=== PATIENT | male | born 1950 | race Caucasian/White ===

== ENCOUNTER 2016-09-19 23:23 | Emergency (ER) | payer MEDICARE, MEDICAID ==
[~2016-09-19] VITALS: Ht 193 cm; Wt 114.0 kg
[~2016-09-19 23:23] MED LIST: CITA20TA11 PO; DEPER5 PO; LACT10SO6 MT; LAMO25TA4 PO; METO25TA6 PO; OLAN10TA19 PO; OLAN5TAB26 PO; TRAZ-129 PO
[2016-09-19 23:45] VITALS: BP 123/68
[2016-09-20 00:31] LABS: HEMOGLOBIN. 11.7 g/dL (14.0-18.0); MEAN CORPUSCULAR HEMOGLOBIN 31.9 pg (28.0-32.0); MEAN CORPUSCULAR HGB CONC 33.4 g/dL (31.0-37.0); MEAN CORPUSCULAR VOLUME 95.8 fL (80.0-94.0); MEAN PLATELET VOLUME 7.8 fl (7.4-10.4); PLATELET 218 x1000/uL (130-400); RED BLOOD CELL COUNT 3.66 mill/uL (4.7-6.1); WHITE BLOOD COUNT 7.8 x1000/uL (4.5-11.0)
[2016-09-20 00:33] LABS: DIFFERENTIAL COMMENT 1
[2016-09-20 00:34] LABS: CHLORIDE 106 mEq/L (98-107); INDEX HEMOLYSI 3 (1-3); INDEX ICTERIC 1 (1-4); INDEX LIPEMIC 1 (1-3)
[2016-09-20 00:46] LABS: ALANINE AMINOTRANSFERASE 25 IU/L (13-61); ALBUMIN 3.1 g/dL (3.4-5.0); ANION GAP 15; CALCIUM 8.8 mg/dL (8.5-10.1); CARBON DIOXIDE 22 mEq/L (21-32); UREA NITROGEN BLOOD 13 mg/dL (7-21); VALPROIC ACID 39.9 ug/mL (50-100); eGFR > 60 mL/min (>60)
[2016-09-20 01:00] LABS: ATYPICAL LYMPHOCYTES 1; PLATELET ESTIMATE NORMAL
[2016-09-20] MEDS ORDERED: VALPROIC ACID 250MG CAPSULE PO ONE (02:30)
== END 2016-09-20 06:26 | disposition home or self-care (01) ==
LOC: ER 23:24
DX: R56.9 Unspecified convulsions (principal); R53.1 Weakness; F20.9 Schizophrenia, unspecified; Z91.011 Allergy to milk products; Z79.899 Other long term (current) drug therapy
CPT/HCPCS: 36415; 80053; 80165; 85025; 93005; 99285

== ENCOUNTER 2017-03-19 15:55 | Observation (INO) | payer MEDICARE, MEDICAID ==
[~2017-03-19] VITALS: Ht 193 cm; Wt 86.6 kg
[2017-03-19] MEDS ORDERED: CLONIDINE 0.2MG TABLET PO ONE (18:15)
[2017-03-19 18:45] LABS: CLARITY URINE CLEAR (CLEAR); COLOR URINE YELLOW (YELLOW); GLUCOSE URINE NEGATIVE (NEGATIVE); KETONES URINE 1+ (NEGATIVE); LEUKOCYTE ESTERASE URINE NEGATIVE (NEGATIVE); NITRITE URINE NEGATIVE (NEGATIVE); OCCULT BLOOD URINE 3+ (NEGATIVE); PH URINE 6.5 (4.5-8.0); PROTEIN URINE TRACE (NEGATIVE); SPECIFIC GRAVITY URINE 1.025 (1.005-1.030)
[2017-03-19 19:08] LABS: *AMPHETAMINES SCREEN URINE NEGATIVE (NEGATIVE); *BARBITURATES SCREEN URINE NEGATIVE (NEGATIVE); *BENZODIAZEPINES SCREEN URINE NEGATIVE (NEGATIVE); *COCAINE SCREEN URINE NEGATIVE (NEGATIVE); CANNABINOID URINE SCREEN NEGATIVE (NEGATIVE); METHADONE URINE SCREEN NEGATIVE (NEGATIVE); OPIATES URINE SCREEN NEGATIVE (NEGATIVE); PHENCYCLIDINE URINE SCREEN NEGATIVE (NEGATIVE)
[2017-03-19 19:32] LABS: PROTHROMBIN TIME 10.7 sec (9.4-11.6)
[2017-03-19 19:34] LABS: EOSINOPHILS % 0.9 % (0.0-5.0); HEMATOCRIT. 37.3 % (42.0-52.0); HEMOGLOBIN. 12.8 g/dL (14.0-18.0); LYMPHOCYTES % 17.4 % (20.0-50.0); MEAN CORPUSCULAR HEMOGLOBIN 31.9 pg (28.0-32.0); MEAN CORPUSCULAR VOLUME 92.7 fL (80.0-94.0); MEAN PLATELET VOLUME 9.4 fl (7.4-10.4); MONOCYTES % 9.7 % (2.0-8.0); PLATELET 131 x1000/uL (130-400); RED BLOOD CELL COUNT 4.03 mill/uL (4.7-6.1); RED CELL DISTRIBUTION WIDTH 13.3 % (11.6-14.6)
[2017-03-19 19:35] LABS: CARBON DIOXIDE 25 mEq/L (21-32); CHLORIDE 105 mEq/L (98-107)
[2017-03-19 19:42] LABS: ETHANOL BLOOD < 10 mg/dL
[2017-03-19 19:43] LABS: TROPONIN I 0.03 ng/mL (0.00-0.04)
[2017-03-19] MEDS ORDERED: LORAZEPAM 2MG/ML CPJ IV ONE (20:15)
[2017-03-19] MEDS ORDERED: LEVETIRACETAM 1,000 MG in SODIUM CHLORIDE 0.9% 100 ML IV ONE (20:45)
[2017-03-19 22:40] VITALS: BP 131/82
[2017-03-20 04:00] VITALS: BP 99/58
[2017-03-20] MEDS: DEXT 5%/0.45% NACL 1000ML 1,000 ML IV SCH ×2 (04:00→16:35)
[2017-03-20 06:39] LABS: EOSINOPHILS % 2.3 % (0.0-5.0); HEMATOCRIT. 32.8 % (42.0-52.0); HEMOGLOBIN. 11.3 g/dL (14.0-18.0); LYMPHOCYTES % 24.1 % (20.0-50.0); MEAN CORPUSCULAR HEMOGLOBIN 32.1 pg (28.0-32.0); MEAN CORPUSCULAR VOLUME 93.2 fL (80.0-94.0); MEAN PLATELET VOLUME 9.2 fl (7.4-10.4); MONOCYTES % 10.1 % (2.0-8.0); NEUTROPHILS % 62.5 % (40.0-76.0); PLATELET 130 x1000/uL (130-400); RED BLOOD CELL COUNT 3.52 mill/uL (4.7-6.1); RED CELL DISTRIBUTION WIDTH 13.5 % (11.6-14.6)
[2017-03-20 07:22] LABS: CARBON DIOXIDE 26 mEq/L (21-32); CHLORIDE 109 mEq/L (98-107)
[2017-03-20 07:39] VITALS: BP 160/73
[2017-03-20] MEDS ORDERED: LAMOTRIGINE 25MG TABLET PO SCH (09:00)
[2017-03-20] MEDS: LEVETIRACETAM 500MG TABLET PO SCH ×2 (09:07→21:37)
[2017-03-20] MEDS: DIVALPROEX SODIUM 500MG DR TABLET PO SCH ×2 (09:07→16:35)
[2017-03-20] MEDS: OLANZAPINE 5MG TABLET PO SCH (09:07)
[2017-03-20] MEDS: METOPROLOL TARTRATE 25MG TABLET PO SCH (09:07)
[2017-03-20 12:12] VITALS: BP 95/54
[2017-03-20 12:13] VITALS: BP_SYST 88; BP_SYST 97; BP_DIAS 62; BP_DIAS 65
[2017-03-20] MEDS: TRAZODONE HCL 50MG TABLET PO SCH (16:35)
[2017-03-20] MEDS: OLANZAPINE 10MG TABLET PO SCH (16:35)
[2017-03-20 20:00] VITALS: BP_SYST 104; BP_SYST 91; BP_DIAS 66; BP_DIAS 67
[2017-03-20] MEDS ORDERED: CITALOPRAM HYDROBROMIDE 20MG TABLET PO SCH (21:00)
[2017-03-21 00:05] VITALS: BP 107/56
[2017-03-21 04:00] VITALS: BP 108/64
[2017-03-21] MEDS: DEXT 5%/0.45% NACL 1000ML 1,000 ML IV SCH (05:06)
[2017-03-21 08:00] VITALS: BP_SYST 128; BP_SYST 139; BP_SYST 142; BP_DIAS 61; BP_DIAS 81; BP_DIAS 85
[2017-03-21] MEDS: LAMOTRIGINE 25MG TABLET PO SCH ×2 (09:08→16:20)
[2017-03-21] MEDS: LEVETIRACETAM 500MG TABLET PO SCH (09:08)
[2017-03-21] MEDS: OLANZAPINE 5MG TABLET PO SCH (09:08)
[2017-03-21] MEDS: DIVALPROEX SODIUM 500MG DR TABLET PO SCH ×2 (09:08→16:20)
[2017-03-21] MEDS: METOPROLOL TARTRATE 25MG TABLET PO SCH (09:09)
[2017-03-21 12:00] VITALS: BP 111/79
[2017-03-21 13:27] VITALS: BP 111/99
[2017-03-21 16:00] VITALS: BP 140/82
[2017-03-21] MEDS: OLANZAPINE 10MG TABLET PO SCH (16:20)
[2017-03-21] MEDS: TRAZODONE HCL 50MG TABLET PO SCH (16:21)
== END 2017-03-21 16:40 | disposition home or self-care (01) ==
LOC: ER 17:52 → 7WST 20:53 → INTOOBSV 20:53 → EDBEDREQTM 20:56 → EDBEDREQ 20:56 → ENRESERV 21:40
PROVIDERS: ADMIT Internal Medicine; ATTEND Internal Medicine
DX: G40.909 Epilepsy, unspecified, not intractable, without status epilepticus (principal); F31.9 Bipolar disorder, unspecified; F25.9 Schizoaffective disorder, unspecified; I11.0 Hypertensive heart disease with heart failure; I50.9 Heart failure, unspecified; J32.0 Chronic maxillary sinusitis; N40.0 Benign prostatic hyperplasia without lower urinary tract symptoms; Z79.899 Other long term (current) drug therapy; Z87.820 Personal history of traumatic brain injury; Z98.2 Presence of cerebrospinal fluid drainage device
CPT/HCPCS: 36415; 70450; 71010; 80048; 80053; 80165; 80305; 81001; 82962; 83880; 84484; 85025; 85610; 88302; 93005; 95819; 96361; 96365; 96375; 99285; A6261; G0378; G0482; J1953; J2060; J3490; 96374; J7050

== ENCOUNTER 2017-08-03 11:09 | Emergency (ER) | payer MEDICAID, MEDICARE ==
[~2017-08-03] VITALS: Ht 172.7 cm; Wt 80.0 kg
[2017-08-03 13:26] LABS: BASOPHILS % 0.7 % (0.0-2.0); EOSINOPHILS % 0.7 % (0.0-5.0); HEMATOCRIT. 37.6 % (42.0-52.0); HEMOGLOBIN. 12.6 g/dL (14.0-18.0); LYMPHOCYTES % 12.1 % (20.0-50.0); MEAN CORPUSCULAR HEMOGLOBIN 31.7 pg (28.0-32.0); MEAN CORPUSCULAR VOLUME 94.5 fL (80.0-94.0); MEAN PLATELET VOLUME 10.1 fl (7.4-10.4); MONOCYTES % 9.7 % (2.0-8.0); NEUTROPHILS % 76.8 % (40.0-76.0); PLATELET 123 x1000/uL (130-400); RED BLOOD CELL COUNT 3.98 mill/uL (4.7-6.1); RED CELL DISTRIBUTION WIDTH 13.8 % (11.6-14.6)
[2017-08-03 13:41] LABS: CARBAMAZEPINE 3.4 ug/mL (4-12); CHLORIDE 108 mEq/L (98-107)
[2017-08-03 13:48] LABS: PHENOBARBITAL < 2.1 ug/mL (15.0-40.0)
[2017-08-03 15:12] VITALS: BP 139/79
== END 2017-08-03 17:52 ==
LOC: ER 12:45
DX: G40.409 Other generalized epilepsy and epileptic syndromes, not intractable, without status epilepticus (principal); I10 Essential (primary) hypertension; E11.9 Type 2 diabetes mellitus without complications; E78.5 Hyperlipidemia, unspecified; E05.90 Thyrotoxicosis, unspecified without thyrotoxic crisis or storm; Z88.8 Allergy status to other drugs, medicaments and biological substances; Z91.011 Allergy to milk products
CPT/HCPCS: 36415; 80053; 80156; 80165; 80184; 80185; 82962; 85025; 99285

== ENCOUNTER 2017-08-13 05:05 | Emergency (ER) | payer MEDICARE ==
[~2017-08-13] VITALS: Ht 193 cm; Wt 98.0 kg
[2017-08-13 07:12] LABS: BASOPHILS % 0.6 % (0.0-2.0); EOSINOPHILS % 0.3 % (0.0-5.0); HEMATOCRIT. 37.3 % (42.0-52.0); HEMOGLOBIN. 12.7 g/dL (14.0-18.0); LYMPHOCYTES % 12.5 % (20.0-50.0); MEAN CORPUSCULAR HEMOGLOBIN 31.8 pg (28.0-32.0); MEAN CORPUSCULAR VOLUME 93.7 fL (80.0-94.0); MEAN PLATELET VOLUME 9.6 fl (7.4-10.4); MONOCYTES % 9.6 % (2.0-8.0); PLATELET 120 x1000/uL (130-400); RED BLOOD CELL COUNT 3.98 mill/uL (4.7-6.1); RED CELL DISTRIBUTION WIDTH 13.3 % (11.6-14.6)
[2017-08-13 07:22] LABS: CHLORIDE 108 mEq/L (98-107)
[2017-08-13 07:23] LABS: TROPONIN I < 0.02 ng/mL (0.00-0.04)
[2017-08-13] MEDS ORDERED: LIDOCAINE HCL 1% 20ML VIAL (Pyxis) INJ INFIL ONE (08:45)
[2017-08-13] MEDS ORDERED: BACITRACIN ZINC OINT UDPKT TOP ONE (11:59)
[2017-08-13] MEDS ORDERED: TETANUS AND DIPHTHERIA TOX/PF 0.5ML SYR (ADULT) IM ONE (12:30)
[2017-08-13] MEDS ORDERED: OXYMETAZOLINE HCL NASAL SPRAY 15ML BOTHNSTRLS STA (12:58)
[2017-08-13] MEDS ORDERED: VISCOUS LIDOCAINE 2% 15 ML UDC MM STA (12:58)
[2017-08-13 14:15] VITALS: BP 139/68
[2017-08-15] MEDS ORDERED: ATOR10TA69 PO (02:47)
[2017-08-15] MEDS ORDERED: CARB200T PO (02:47)
[2017-08-15] MEDS ORDERED: ASPI-1159 PO (02:47)
[2017-08-15] MEDS ORDERED: LISI-604 PO (02:47)
[2017-08-15] MEDS ORDERED: THIO300C PO (02:48)
== END 2017-08-13 14:37 | disposition home or self-care (01) ==
LOC: ER 05:39
DX: S01.81XA Laceration without foreign body of other part of head, initial encounter (principal); S05.92XA Unspecified injury of left eye and orbit, initial encounter; S05.12XA Contusion of eyeball and orbital tissues, left eye, initial encounter; W19.XXXA Unspecified fall, initial encounter; R56.9 Unspecified convulsions; R04.0 Epistaxis; E11.9 Type 2 diabetes mellitus without complications; E05.90 Thyrotoxicosis, unspecified without thyrotoxic crisis or storm; Z23 Encounter for immunization; Z88.8 Allergy status to other drugs, medicaments and biological substances; Z98.2 Presence of cerebrospinal fluid drainage device; Z91.011 Allergy to milk products
CPT/HCPCS: 12011; 36415; 70450; 71045; 80053; 83735; 83880; 84484; 85025; 93005; 99285; J3490; 90714

== ENCOUNTER 2017-08-28 10:48 | Emergency (ER) | payer MEDICARE ==
[~2017-08-28] VITALS: Ht 182.9 cm; Wt 93.2 kg
[~2017-08-28 10:48] MED LIST changes: +ASPI-1159 PO; +ATOR10TA69 PO; +CARB200T PO; +LISI-604 PO; +THIO300C PO
[2017-08-28 18:58] LABS: CHLORIDE 108 mEq/L (98-107)
[2017-08-28 19:04] LABS: HEMATOCRIT. 39.4 % (42.0-52.0); MEAN CORPUSCULAR HEMOGLOBIN 31.5 pg (28.0-32.0); MEAN CORPUSCULAR VOLUME 95.2 fL (80.0-94.0); PLATELET 127 x1000/uL (130-400); RED BLOOD CELL COUNT 4.14 mill/uL (4.7-6.1); RED CELL DISTRIBUTION WIDTH 13.4 % (11.6-14.6)
[2017-08-28 19:06] LABS: CREATINE KINASE 66 IU/L (39-308)
[2017-08-28 19:44] VITALS: BP 157/82
[2017-08-28 19:50] LABS: CLARITY URINE CLEAR (CLEAR); COLOR URINE YELLOW (YELLOW); KETONES URINE 2+ (NEGATIVE); LEUKOCYTE ESTERASE URINE NEGATIVE (NEGATIVE); NITRITE URINE NEGATIVE (NEGATIVE); OCCULT BLOOD URINE NEGATIVE (NEGATIVE); PROTEIN URINE NEGATIVE (NEGATIVE); SPECIFIC GRAVITY URINE 1.027 (1.005-1.030)
[2017-08-28 20:01] LABS: ATYPICAL LYMPHOCYTES 1; PLATELET ESTIMATE SLIGHTLY DECREASED
== END 2017-08-28 20:35 | disposition home or self-care (01) ==
LOC: ER 13:44
DX: S09.8XXD Other specified injuries of head, subsequent encounter (principal); I10 Essential (primary) hypertension; X58.XXXD Exposure to other specified factors, subsequent encounter; Y93.89 Activity, other specified; Y99.8 Other external cause status; Y92.89 Other specified places as the place of occurrence of the external cause; Z79.82 Long term (current) use of aspirin
CPT/HCPCS: 36415; 80053; 81003; 82550; 85025; 99284

== ENCOUNTER 2017-10-20 19:49 | Emergency (ER) | payer MEDICARE ==
[~2017-10-20] VITALS: Ht 188 cm; Wt 100.0 kg
[~2017-10-20 19:49] MED LIST changes: +CARB200T6 PO; +Divalproex Sodium PO; -LACT10SO6 MT; +LACT10SO6 PO; +LAM25 PO; +LORA10TA7 PO; -OLAN5TAB26 PO
[2017-10-20] MEDS ORDERED: SODIUM CHLORIDE 0.9% 1,000 ML IV ONE (20:30)
[2017-10-20] MEDS ORDERED: ACETAMINOPHEN 325MG TABLET PO ONE (20:30)
[2017-10-20 20:56] LABS: HEMATOCRIT. 33.9 % (42.0-52.0); HEMOGLOBIN. 11.5 g/dL (14.0-18.0); MEAN CORPUSCULAR HEMOGLOBIN 32.3 pg (28.0-32.0); MEAN CORPUSCULAR VOLUME 95.1 fL (80.0-94.0); MEAN PLATELET VOLUME 9.2 fl (7.4-10.4); PLATELET 131 x1000/uL (130-400); RED BLOOD CELL COUNT 3.56 mill/uL (4.7-6.1); RED CELL DISTRIBUTION WIDTH 13.3 % (11.6-14.6)
[2017-10-20 21:01] LABS: CHLORIDE 103 mEq/L (98-107)
[2017-10-20 21:10] LABS: CARBAMAZEPINE 4.3 ug/mL (4-12)
[2017-10-20 21:14] LABS: PHENOBARBITAL < 2.1 ug/mL (15.0-40.0)
[2017-10-20 21:41] LABS: PLATELET ESTIMATE SLIGHTLY DECREASED
[2017-10-20] MEDS ORDERED: VALPROATE SODIUM 500 MG in SODIUM CHLORIDE 0.9% 100 ML IV STA (23:12)
[2017-10-20] MEDS ORDERED: CARBAMAZEPINE 100MG TABLET CHEW PO ONE (23:15)
[2017-10-21 03:35] VITALS: BP 138/87
== END 2017-10-21 04:00 ==
LOC: ER 19:49
DX: G40.409 Other generalized epilepsy and epileptic syndromes, not intractable, without status epilepticus (principal); I10 Essential (primary) hypertension; E78.00 Pure hypercholesterolemia, unspecified; H61.21 Impacted cerumen, right ear; D72.819 Decreased white blood cell count, unspecified; D64.9 Anemia, unspecified; Z91.011 Allergy to milk products; Z88.8 Allergy status to other drugs, medicaments and biological substances
CPT/HCPCS: 36415; 70450; 80053; 80156; 80165; 80184; 80185; 85025; 96361; 96365; 99285; J3490; J7030; J7050

== ENCOUNTER 2017-10-22 10:53 | Emergency (ER) | payer MEDICARE ==
[~2017-10-22] VITALS: Ht 193 cm; Wt 98.0 kg
[2017-10-22 13:47] VITALS: BP 130/68
== END 2017-10-22 14:15 | disposition home or self-care (01) ==
LOC: ER 10:53
DX: Z09 Encounter for follow-up examination after completed treatment for conditions other than malignant neoplasm (principal); H61.21 Impacted cerumen, right ear; G40.909 Epilepsy, unspecified, not intractable, without status epilepticus
CPT/HCPCS: 99282

== ENCOUNTER 2017-10-25 13:24 | Emergency (ER) | payer MEDICARE ==
[~2017-10-25] VITALS: Ht 182.9 cm; Wt 100.0 kg
[2017-10-25 15:17] LABS: CHLORIDE 108 mEq/L (98-107)
[2017-10-25 16:04] LABS: EOSINOPHILS % 3.6 % (0.0-5.0); HEMATOCRIT. 31.8 % (42.0-52.0); HEMOGLOBIN. 10.9 g/dL (14.0-18.0); LYMPHOCYTES % 21.9 % (20.0-50.0); MEAN CORPUSCULAR HEMOGLOBIN 32.5 pg (28.0-32.0); MEAN CORPUSCULAR VOLUME 94.7 fL (80.0-94.0); MONOCYTES % 9.8 % (2.0-8.0); NEUTROPHILS % 63.7 % (40.0-76.0); PLATELET 133 x1000/uL (130-400); RED BLOOD CELL COUNT 3.36 mill/uL (4.7-6.1); RED CELL DISTRIBUTION WIDTH 13.2 % (11.6-14.6)
[2017-10-25 17:50] LABS: CLARITY URINE CLEAR (CLEAR); COLOR URINE YELLOW (YELLOW); KETONES URINE NEGATIVE (NEGATIVE); LEUKOCYTE ESTERASE URINE NEGATIVE (NEGATIVE); NITRITE URINE NEGATIVE (NEGATIVE); OCCULT BLOOD URINE NEGATIVE (NEGATIVE); PROTEIN URINE NEGATIVE (NEGATIVE); SPECIFIC GRAVITY URINE 1.009 (1.005-1.030); UROBILINOGEN URINE 0.2 E.U./dL (0.2-1.0)
[2017-10-25 18:39] VITALS: BP 125/75
== END 2017-10-25 18:41 | disposition home or self-care (01) ==
LOC: ER 15:25
DX: R32 Unspecified urinary incontinence (principal); D64.9 Anemia, unspecified; M54.5 Low back pain; I10 Essential (primary) hypertension; F17.200 Nicotine dependence, unspecified, uncomplicated; Z79.82 Long term (current) use of aspirin; Z91.011 Allergy to milk products; Z88.8 Allergy status to other drugs, medicaments and biological substances
CPT/HCPCS: 36415; 74018; 80053; 81003; 85025; 99285

== ENCOUNTER 2017-11-12 08:41 | Emergency (ER) | payer MEDICARE ==
[~2017-11-12] VITALS: Ht 193 cm; Wt 105.0 kg
[2017-11-12] MEDS ORDERED: SODIUM CHLORIDE 0.9% 1,000 ML IV ONE (09:14)
[2017-11-12] MEDS ORDERED: LAMOTRIGINE 25MG TABLET PO STA (09:14)
[2017-11-12] MEDS ORDERED: ACETAMINOPHEN 325MG TABLET PO ONE (09:30)
[2017-11-12 09:39] LABS: BASOPHILS % 1.1 % (0.0-2.0); EOSINOPHILS % 1.5 % (0.0-5.0); HEMATOCRIT. 38.8 % (42.0-52.0); HEMOGLOBIN. 13.4 g/dL (14.0-18.0); LYMPHOCYTES % 16.6 % (20.0-50.0); MEAN CORPUSCULAR HEMOGLOBIN 32.4 pg (28.0-32.0); MEAN CORPUSCULAR VOLUME 94.1 fL (80.0-94.0); MEAN PLATELET VOLUME 9.4 fl (7.4-10.4); MONOCYTES % 6.5 % (2.0-8.0); NEUTROPHILS % 74.3 % (40.0-76.0); PLATELET 126 x1000/uL (130-400); RED BLOOD CELL COUNT 4.13 mill/uL (4.7-6.1); RED CELL DISTRIBUTION WIDTH 12.9 % (11.6-14.6)
[2017-11-12 09:40] LABS: CHLORIDE 107 mEq/L (98-107)
[2017-11-12 10:18] LABS: CARBAMAZEPINE < 0.5 ug/mL (4-12); PHENOBARBITAL < 2.1 ug/mL (15.0-40.0)
[2017-11-12] MEDS ORDERED: LORAZEPAM 2MG/ML CPJ IV ONE (11:15)
[2017-11-12] MEDS ORDERED: CARBAMAZEPINE 200MG TABLET PO ONE (11:15)
[2017-11-12 13:36] VITALS: BP 133/86
== END 2017-11-12 13:51 | disposition home or self-care (01) ==
LOC: ER 09:03
DX: R56.9 Unspecified convulsions (principal); E78.00 Pure hypercholesterolemia, unspecified; F20.9 Schizophrenia, unspecified; I67.82 Cerebral ischemia; Z88.8 Allergy status to other drugs, medicaments and biological substances; Z79.82 Long term (current) use of aspirin; Z91.011 Allergy to milk products
CPT/HCPCS: 36415; 70450; 71045; 80053; 80156; 80165; 80184; 80185; 85025; 93005; 96361; 96374; 99285; J2060; J7030

== ENCOUNTER 2018-04-06 20:22 | Emergency (ER) | payer MEDICARE, OTHER ==
[~2018-04-06] VITALS: Ht 193 cm; Wt 99.0 kg
[~2018-04-06 20:22] MED LIST changes: -CARB200T6 PO; -CITA20TA11 PO; +CITA20TA75 PO; +IBUP-2029 MT; -TRAZ-129 PO; +TRAZ-212 PO
[2018-04-06 20:26] VITALS: BP 90/56
== END 2018-04-06 23:17 | disposition left against medical advice (07) ==
LOC: ER 20:57
DX: R07.9 Chest pain, unspecified (principal); Z87.891 Personal history of nicotine dependence; Z53.21 Procedure and treatment not carried out due to patient leaving prior to being seen by health care provider

== ENCOUNTER 2018-04-07 11:32 | Emergency (ER) | payer MEDICARE, OTHER ==
[~2018-04-07] VITALS: Ht 177.8 cm; Wt 174.0 kg
[2018-04-07 11:48] VITALS: BP 114/63
== END 2018-04-07 17:46 | disposition left against medical advice (07) ==
LOC: ER 11:32
DX: Z53.21 Procedure and treatment not carried out due to patient leaving prior to being seen by health care provider (principal)

== ENCOUNTER 2018-07-01 16:12 | Inpatient (IN) | payer MEDICARE, MEDICAID ==
[~2018-07-01] VITALS: Ht 193 cm; Wt 80.7 kg
[2018-07-01] MEDS ORDERED: SODIUM CHLORIDE 0.9% 500 ML IV ONE (17:55)
[2018-07-01 18:41] LABS: BASOPHILS % 0.7 % (0.0-2.0); EOSINOPHILS % 0.7 % (0.0-5.0); HEMATOCRIT. 36.9 % (42.0-52.0); HEMOGLOBIN. 12.6 g/dL (14.0-18.0); LYMPHOCYTES % 11.5 % (20.0-50.0); MEAN CORPUSCULAR HEMOGLOBIN 31.8 pg (28.0-32.0); MEAN CORPUSCULAR VOLUME 93.3 fL (80.0-94.0); MEAN PLATELET VOLUME 8.9 fl (7.4-10.4); MONOCYTES % 8.4 % (2.0-8.0); NEUTROPHILS % 78.7 % (40.0-76.0); PLATELET 119 x1000/uL (130-400); RED BLOOD CELL COUNT 3.95 mill/uL (4.7-6.1)
[2018-07-01 18:47] LABS: CHLORIDE 102 mEq/L (98-107)
[2018-07-01 18:48] LABS: INR 1.1; PROTHROMBIN TIME 10.6 sec (9.1-11.1)
[2018-07-01 18:49] LABS: CLARITY URINE CLEAR (CLEAR); COLOR URINE YELLOW (YELLOW); KETONES URINE NEGATIVE (NEGATIVE); LEUKOCYTE ESTERASE URINE NEGATIVE (NEGATIVE); NITRITE URINE NEGATIVE (NEGATIVE); OCCULT BLOOD URINE NEGATIVE (NEGATIVE); PROTEIN URINE NEGATIVE (NEGATIVE); UROBILINOGEN URINE 0.2 E.U./dL (0.2-1.0)
[2018-07-01 18:52] LABS: ETHANOL BLOOD < 10 mg/dL
[2018-07-01 18:56] LABS: CARBAMAZEPINE 5.7 ug/mL (4-12); CREATINE KINASE 136 IU/L (39-308)
[2018-07-01 18:57] LABS: *AMPHETAMINES SCREEN URINE NEGATIVE (NEGATIVE); *BARBITURATES SCREEN URINE NEGATIVE (NEGATIVE); *BENZODIAZEPINES SCREEN URINE NEGATIVE (NEGATIVE); *COCAINE SCREEN URINE NEGATIVE (NEGATIVE); CANNABINOID URINE SCREEN NEGATIVE (NEGATIVE)
[2018-07-01 18:58] LABS: METHADONE URINE SCREEN NEGATIVE (NEGATIVE); OPIATES URINE SCREEN NEGATIVE (NEGATIVE); PHENCYCLIDINE URINE SCREEN NEGATIVE (NEGATIVE)
[2018-07-01] MEDS ORDERED: VALPROATE SODIUM 500 MG in SODIUM CHLORIDE 0.9% 100 ML IV SCH (20:15)
[2018-07-01] MEDS ORDERED: LORAZEPAM 2MG/ML CPJ IV ONE (20:15)
[2018-07-02 02:52] VITALS: BP 134/86
[2018-07-02 03:20] VITALS: BP 134/86
[2018-07-02] MEDS ORDERED: PERA2TAB PO (05:05)
[2018-07-02] MEDS ORDERED: DOCU-138 PO (05:05)
[2018-07-02] MEDS ORDERED: ACET-2178 PO (05:05)
[2018-07-02] MEDS ORDERED: MOM MT (05:20)
[2018-07-02] MEDS ORDERED: AMLO10TA80 PO (05:20)
[2018-07-02] MEDS ORDERED: BLOO-1686 MC (05:20)
[2018-07-02] MEDS ORDERED: CLON0.1T PO (05:20)
[2018-07-02] MEDS ORDERED: ACET-2708 PO (05:20)
[2018-07-02] MEDS ORDERED: HYDR-3281 PO (05:20)
[2018-07-02] MEDS ORDERED: MELA1LIQ PO (05:20)
[2018-07-02 06:08] VITALS: BP 134/86
[2018-07-02 08:00] VITALS: BP 133/78
[2018-07-02] MEDS ORDERED: GUAIFENESIN 200MG/10ML SUGAR FREE UDC PO PRN (08:00)
[2018-07-02] MEDS ORDERED: DOCUSATE SODIUM 100MG CAPSULE PO PRN (08:00)
[2018-07-02] MEDS ORDERED: MEDICATION NOT ON FORMULARY EA (Aspirin (Aspirin Low Dose) 1 TAB) PO SCH (08:00)
[2018-07-02] MEDS ORDERED: ACETAMINOPHEN 650MG SUPP PR PRN (08:00)
[2018-07-02] MEDS ORDERED: ACETAMINOPHEN 325MG TABLET PO PRN (08:00)
[2018-07-02] MEDS ORDERED: NA PHOS,M-B/NA PHOS,DI-BA ENEMA 118ML PR PRN (08:00)
[2018-07-02] MEDS ORDERED: AMLODIPINE 10MG TABLET PO SCH (08:00)
[2018-07-02] MEDS ORDERED: ONDANSETRON HCL 4MG/2ML INJ IV PRN (08:00)
[2018-07-02] MEDS ORDERED: MAGNESIUM/ALUMINUM HYDROXIDE/SIMETHICONE 30ML UDC PO PRN (08:00)
[2018-07-02] MEDS ORDERED: ACETAMINOPHEN 650MG/20.3ML UDC GT PRN (08:00)
[2018-07-02] MEDS ORDERED: CLONIDINE 0.1MG TABLET PO PRN ×2 (08:00)
[2018-07-02] MEDS ORDERED: HYDROCODONE/ACETAMINOPHEN 5/325MG TABLET PO PRN (08:00)
[2018-07-02] MEDS ORDERED: DIPHENHYDRAMINE 50MG/ML VIAL IV PRN (08:00)
[2018-07-02] MEDS ORDERED: IPRATROPIUM/ALBUTEROL 0.5-3(2.5)MG/3ML NEB INH PRN (08:00)
[2018-07-02] MEDS ORDERED: MEDICATION NOT ON FORMULARY EA (Melatonin 3 MG) PO PRN (08:00)
[2018-07-02] MEDS ORDERED: LORAZEPAM 2MG/ML CPJ IV PRN (08:15)
[2018-07-02] MEDS ORDERED: LAMOTRIGINE 25MG TABLET PO SCH (09:00)
[2018-07-02] MEDS ORDERED: MEDICATION NOT ON FORMULARY EA (Metoprolol Tartrate 25 MG) PO SCH (09:00)
[2018-07-02] MEDS ORDERED: MEDICATION NOT ON FORMULARY EA (Docusate Sodium (Colace) 100 MG) PO SCH (09:00)
[2018-07-02] MEDS: METOPROLOL TARTRATE 25MG TABLET PO SCH ×2 (09:02→20:54)
[2018-07-02] MEDS: DOCUSATE SODIUM 100MG CAPSULE PO SCH ×2 (09:03→16:02)
[2018-07-02] MEDS: AMLODIPINE 10MG TABLET PO SCH (09:04)
[2018-07-02] MEDS: CARBAMAZEPINE 200MG TABLET PO SCH (09:05)
[2018-07-02] MEDS: ASPIRIN 81MG TABLET PO SCH (09:05)
[2018-07-02] MEDS: ENOXAPARIN 40MG/0.4ML SYR SUBCUT SCH (09:06)
[2018-07-02] MEDS: DIVALPROEX SODIUM 250MG DR TABLET PO SCH ×2 (09:06→16:49)
[2018-07-02] MEDS: MAGNESIUM HYDROXIDE 400MG/5ML 30ML UDC PO SCH (09:07)
[2018-07-02 11:16] LABS: BASOPHILS % 0.6 % (0.0-2.0); EOSINOPHILS % 0.5 % (0.0-5.0); HEMATOCRIT. 36.8 % (42.0-52.0); HEMOGLOBIN. 12.6 g/dL (14.0-18.0); LYMPHOCYTES % 9.8 % (20.0-50.0); MEAN CORPUSCULAR HEMOGLOBIN 32.2 pg (28.0-32.0); MEAN PLATELET VOLUME 9.2 fl (7.4-10.4); MONOCYTES % 8.5 % (2.0-8.0); NEUTROPHILS % 80.6 % (40.0-76.0); PLATELET 121 x1000/uL (130-400); RED BLOOD CELL COUNT 3.92 mill/uL (4.7-6.1); RED CELL DISTRIBUTION WIDTH 12.9 % (11.6-14.6)
[2018-07-02 12:00] VITALS: BP 141/79
[2018-07-02 12:15] LABS: CHLORIDE 108 mEq/L (98-107)
[2018-07-02] MEDS: SODIUM CHLORIDE 0.9% INJ 3ML FLUSH IVF SCH ×2 (13:15→20:54)
[2018-07-02 16:00] VITALS: BP 146/77
[2018-07-02] MEDS ORDERED: OLANZAPINE 10 MG PO SCH (17:00)
[2018-07-02] MEDS ORDERED: PERAMPANEL 2 MG PO SCH (17:00)
[2018-07-02] MEDS ORDERED: OLANZAPINE 10MG TABLET PO SCH (17:00)
[2018-07-02] MEDS ORDERED: CITALOPRAM HYDROBROMIDE 10MG TABLET PO SCH (21:00)
[2018-07-02] MEDS ORDERED: ATORVASTATIN CALCIUM 10MG TABLET PO SCH (21:00)
[2018-07-02] MEDS ORDERED: CITALOPRAM HYDROBROMIDE 30 MG PO SCH (21:00)
[2018-07-03] VITALS: BP 110/70
[2018-07-03 04:00] VITALS: BP 158/81
[2018-07-03] MEDS: SODIUM CHLORIDE 0.9% INJ 3ML FLUSH IVF SCH ×2 (06:08→13:06)
[2018-07-03 06:50] LABS: BASOPHILS % 0.7 % (0.0-2.0); EOSINOPHILS % 1.6 % (0.0-5.0); HEMATOCRIT. 38.3 % (42.0-52.0); HEMOGLOBIN. 12.9 g/dL (14.0-18.0); LYMPHOCYTES % 16.6 % (20.0-50.0); MEAN CORPUSCULAR HEMOGLOBIN 31.7 pg (28.0-32.0); MEAN CORPUSCULAR VOLUME 93.9 fL (80.0-94.0); MEAN PLATELET VOLUME 9.3 fl (7.4-10.4); MONOCYTES % 9.9 % (2.0-8.0); NEUTROPHILS % 71.2 % (40.0-76.0); PLATELET 132 x1000/uL (130-400); RED BLOOD CELL COUNT 4.08 mill/uL (4.7-6.1); RED CELL DISTRIBUTION WIDTH 13.2 % (11.6-14.6)
[2018-07-03 06:55] LABS: CHLORIDE 106 mEq/L (98-107)
[2018-07-03 07:10] LABS: LDL CHOLESTEROL 82 mg/dL (5-100)
[2018-07-03 07:11] LABS: HDL CHOLESTEROL 80 mg/dL (40-59)
[2018-07-03 08:00] VITALS: BP 152/85
[2018-07-03] MEDS: DOCUSATE SODIUM 100MG CAPSULE PO SCH (08:48)
[2018-07-03] MEDS: ASPIRIN 81MG TABLET PO SCH (08:48)
[2018-07-03] MEDS: MAGNESIUM HYDROXIDE 400MG/5ML 30ML UDC PO SCH (08:50)
[2018-07-03] MEDS: METOPROLOL TARTRATE 25MG TABLET PO SCH (08:50)
[2018-07-03] MEDS: ENOXAPARIN 40MG/0.4ML SYR SUBCUT SCH (08:50)
[2018-07-03] MEDS: AMLODIPINE 10MG TABLET PO SCH (08:50)
[2018-07-03] MEDS: CARBAMAZEPINE 200MG TABLET PO SCH (08:50)
[2018-07-03] MEDS ORDERED: LAMOTRIGINE 25MG TABLET PO SCH (09:00)
[2018-07-03] MEDS: DIVALPROEX SODIUM 250MG DR TABLET PO SCH (09:04)
[2018-07-03 12:00] VITALS: BP 138/79
[2018-07-03 12:43] VITALS: BP 18/150
== END 2018-07-03 16:00 | DRG 100 ==
LOC: ER 16:12 → 7WST 20:47 → EDBEDREQ 20:54 → EDBEDREQTM 20:54 → ENRESERV 07-02 01:38
PROVIDERS: ADMIT Family Medicine; ATTEND Family Medicine
DX: G40.901 Epilepsy, unspecified, not intractable, with status epilepticus (principal); G93.41 Metabolic encephalopathy; I50.32 Chronic diastolic (congestive) heart failure; E11.9 Type 2 diabetes mellitus without complications; E78.00 Pure hypercholesterolemia, unspecified; E78.5 Hyperlipidemia, unspecified; F17.200 Nicotine dependence, unspecified, uncomplicated; F25.9 Schizoaffective disorder, unspecified; F32.9 Major depressive disorder, single episode, unspecified; I11.0 Hypertensive heart disease with heart failure; Z79.899 Other long term (current) drug therapy; Z88.9 Allergy status to unspecified drugs, medicaments and biological substances; Z98.2 Presence of cerebrospinal fluid drainage device; Z88.2 Allergy status to sulfonamides; Z88.8 Allergy status to other drugs, medicaments and biological substances; Z91.011 Allergy to milk products
CPT/HCPCS: 36415; 71045; 80061; 80156; 80165; 80305; 82140; 82542; 82550; 82962; 83880; 84484; 92610; 96374; 96375; 97162; 99291; G0482; J1650; J2060; J3490; J7040; J7050

== ENCOUNTER 2018-08-08 17:40 | Emergency (ER) | payer MEDICARE, MEDICAID ==
[~2018-08-08] VITALS: Ht 182.9 cm; Wt 77.0 kg
[~2018-08-08 17:40] MED LIST changes: +ACET-2178 PO; +ACET-2708 PO; +AMLO10TA80 PO; +BLOO-1686 MC; +CLON0.1T PO; +DOCU-138 PO; +HYDR-3281 PO; -IBUP-2029 MT; -LACT10SO6 PO; -LAMO25TA4 PO; -LISI-604 PO; -LORA10TA7 PO; +MELA1LIQ PO; +MOM MT; +PERA2TAB PO; -THIO300C PO; -TRAZ-212 PO
[2018-08-08 19:24] LABS: CHLORIDE 107 mEq/L (98-107)
[2018-08-08 19:25] LABS: BASOPHILS % 0.9 % (0.0-2.0); EOSINOPHILS % 2.4 % (0.0-5.0); HEMATOCRIT. 38.9 % (42.0-52.0); HEMOGLOBIN. 13.3 g/dL (14.0-18.0); LYMPHOCYTES % 21.9 % (20.0-50.0); MEAN CORPUSCULAR HEMOGLOBIN 32.4 pg (28.0-32.0); MEAN PLATELET VOLUME 9.3 fl (7.4-10.4); MONOCYTES % 6.5 % (2.0-8.0); NEUTROPHILS % 68.3 % (40.0-76.0); PLATELET 146 x1000/uL (130-400); RED CELL DISTRIBUTION WIDTH 13.6 % (11.6-14.6)
[2018-08-08 19:29] LABS: ETHANOL BLOOD < 10 mg/dL
[2018-08-08 19:36] LABS: PHENOBARBITAL < 2.1 ug/mL (15.0-40.0)
[2018-08-08 19:37] LABS: CLARITY URINE CLEAR (CLEAR); COLOR URINE YELLOW (YELLOW); KETONES URINE TRACE (NEGATIVE); LEUKOCYTE ESTERASE URINE NEGATIVE (NEGATIVE); NITRITE URINE NEGATIVE (NEGATIVE); OCCULT BLOOD URINE NEGATIVE (NEGATIVE); PH URINE 6.5 (4.5-8.0); PROTEIN URINE NEGATIVE (NEGATIVE)
[2018-08-08 19:43] LABS: CARBAMAZEPINE < 0.5 ug/mL (4-12)
[2018-08-08 19:44] LABS: CANNABINOID URINE SCREEN NEGATIVE (NEGATIVE); PHENCYCLIDINE URINE SCREEN NEGATIVE (NEGATIVE)
[2018-08-08 19:46] LABS: *AMPHETAMINES SCREEN URINE NEGATIVE (NEGATIVE); *BARBITURATES SCREEN URINE NEGATIVE (NEGATIVE); *BENZODIAZEPINES SCREEN URINE NEGATIVE (NEGATIVE); *COCAINE SCREEN URINE NEGATIVE (NEGATIVE); METHADONE URINE SCREEN NEGATIVE (NEGATIVE); OPIATES URINE SCREEN NEGATIVE (NEGATIVE)
[2018-08-08] MEDS ORDERED: VALPROIC ACID 250MG CAPSULE PO ONE (20:00)
[2018-08-09 00:01] VITALS: BP 131/77
== END 2018-08-09 00:09 | disposition home or self-care (01) ==
LOC: ER 17:40
DX: G40.909 Epilepsy, unspecified, not intractable, without status epilepticus (principal); R32 Unspecified urinary incontinence; R03.0 Elevated blood-pressure reading, without diagnosis of hypertension
CPT/HCPCS: 36415; 80156; 80165; 80184; 80185; 80305; 99283

== ENCOUNTER 2018-09-23 00:32 | Emergency (ER) | payer MEDICARE, MEDICAID, OTHER ==
[~2018-09-23] VITALS: Ht 190.5 cm; Wt 88.0 kg
[2018-09-23 00:40] VITALS: BP 139/90
== END 2018-09-23 07:48 | disposition home or self-care (01) ==
LOC: ER 00:32
DX: G40.909 Epilepsy, unspecified, not intractable, without status epilepticus (principal); I50.9 Heart failure, unspecified; F32.9 Major depressive disorder, single episode, unspecified; E11.9 Type 2 diabetes mellitus without complications; E78.00 Pure hypercholesterolemia, unspecified; Z98.890 Other specified postprocedural states; Z79.82 Long term (current) use of aspirin; Z79.899 Other long term (current) drug therapy; Z88.2 Allergy status to sulfonamides; Z88.8 Allergy status to other drugs, medicaments and biological substances; Z91.011 Allergy to milk products
CPT/HCPCS: 99283

== ENCOUNTER 2022-09-24 14:21 | Inpatient (IN) | payer MEDICARE, OTHER ==
[~2022-09-24] VITALS: Ht 200.7 cm; Wt 67.4 kg
[~2022-09-24 14:21] MED LIST changes: -ACET-2178 PO; -ASPI-1159 PO; +ASPI-1497 PO; -HYDR-3281 PO; +HYDR-4346 PO; -OLAN10TA19 PO; +OLAN10TA72 PO; +TOPUD PO
[2022-09-24 15:49] LABS: EOSINOPHILS % 7.5 % (0.0-5.0); HEMATOCRIT. 34.1 % (42.0-52.0); HEMOGLOBIN. 11.4 g/dL (14.0-18.0); LYMPHOCYTES % 20.9 % (20.0-50.0); MEAN CORPUSCULAR HEMOGLOBIN 31.2 pg (28.0-32.0); MEAN CORPUSCULAR VOLUME 92.9 fL (80.0-94.0); MEAN PLATELET VOLUME 8.4 fl (7.4-10.4); MONOCYTES % 6.1 % (2.0-8.0); NEUTROPHILS % 64.5 % (40.0-76.0); PLATELET 156 x1000/uL (130-400); RED BLOOD CELL COUNT 3.66 mill/uL (4.7-6.1); RED CELL DISTRIBUTION WIDTH 15.6 % (11.6-14.6)
[2022-09-24 16:03] LABS: PARTIAL THROMBOPLASTIN TIME 28.8 sec (23.4-31.0); PROTHROMBIN TIME 10.9 sec (9.6-11.0)
[2022-09-24 16:04] LABS: CHLORIDE 107 mEq/L (98-107)
[2022-09-24] MEDS: LORAZEPAM 2MG/ML CPJ IV ONE ×2 (16:12→16:13)
[2022-09-24] MEDS ORDERED: LORAZEPAM 2MG/ML CPJ IM ONE (16:15)
[2022-09-24 17:51] LABS: CLARITY URINE CLOUDY (CLEAR); COLOR URINE YELLOW (YELLOW); KETONES URINE NEGATIVE (NEGATIVE); LEUKOCYTE ESTERASE URINE NEGATIVE (NEGATIVE); NITRITE URINE NEGATIVE (NEGATIVE); OCCULT BLOOD URINE NEGATIVE (NEGATIVE); PROTEIN URINE NEGATIVE (NEGATIVE); SPECIFIC GRAVITY URINE 1.016 (1.005-1.030)
[2022-09-24] MEDS ORDERED: SODIUM CHLORIDE 0.9% 1,000 ML IV ONE (19:00)
[2022-09-24] MEDS ORDERED: HYDROCODONE/ACETAMINOPHEN 5/325MG TABLET PO PRN (22:00)
[2022-09-24] MEDS ORDERED: DOCUSATE SODIUM 100MG CAPSULE PO PRN (22:00)
[2022-09-24] MEDS ORDERED: ACETAMINOPHEN 325MG TABLET PO PRN ×2 (22:00)
[2022-09-24] MEDS ORDERED: NALOXONE HCL 0.4MG/ML VIAL IV PRN (22:00)
[2022-09-24] MEDS ORDERED: CLONIDINE 0.1MG TABLET PO PRN (22:00)
[2022-09-24] MEDS ORDERED: IPRATROPIUM/ALBUTEROL 0.5-3(2.5)MG/3ML NEB HHN PRN (22:00)
[2022-09-24] MEDS ORDERED: ONDANSETRON HCL 4MG/2ML INJ IV PRN (22:00)
[2022-09-25] VITALS (8 sets, daily range): BP systolic 128–153; BP diastolic 53–95
[2022-09-25 06:11] LABS: BASOPHILS % 0.7 % (0.0-2.0); EOSINOPHILS % 6.3 % (0.0-5.0); HEMATOCRIT. 32.8 % (42.0-52.0); HEMOGLOBIN. 11.1 g/dL (14.0-18.0); LYMPHOCYTES % 22.9 % (20.0-50.0); MEAN CORPUSCULAR HEMOGLOBIN 31.4 pg (28.0-32.0); MEAN CORPUSCULAR VOLUME 92.6 fL (80.0-94.0); MEAN PLATELET VOLUME 9.2 fl (7.4-10.4); MONOCYTES % 5.6 % (2.0-8.0); NEUTROPHILS % 64.5 % (40.0-76.0); PLATELET 152 x1000/uL (130-400); RED BLOOD CELL COUNT 3.54 mill/uL (4.7-6.1); RED CELL DISTRIBUTION WIDTH 15.4 % (11.6-14.6)
[2022-09-25 08:05] LABS: CHLORIDE 108 mEq/L (98-107)
[2022-09-25] MEDS: SODIUM CHLORIDE 0.9% 1,000 ML IV SCH ×3 (13:11→22:56)
[2022-09-25] MEDS ORDERED: TRAZ-251 GT (22:01)
[2022-09-25] MEDS ORDERED: PHEN100O5 GT (22:01)
[2022-09-25] MEDS ORDERED: DUTA0.5C37 GT (22:01)
[2022-09-25] MEDS ORDERED: HALO10TA13 GT (22:01)
[2022-09-25] MEDS ORDERED: DIVA125C2 GT (22:01)
[2022-09-25] MEDS ORDERED: QUET25TA36 GT (22:01)
[2022-09-25] MEDS ORDERED: BENZ1TAB78 GT (22:01)
[2022-09-25] MEDS ORDERED: KEPPSOL GT (22:01)
[2022-09-25] MEDS ORDERED: MIRT-90 GT (22:01)
[2022-09-25] MEDS ORDERED: FOLI-43 GT (22:01)
[2022-09-25] MEDS ORDERED: ACET650S27 GT (22:19)
[2022-09-25] MEDS ORDERED: BISA10SU62 RC (22:19)
[2022-09-25] MEDS ORDERED: FERR220S6 GT (22:19)
[2022-09-25] MEDS ORDERED: DOXA1TAB2 GT (22:19)
[2022-09-25] MEDS ORDERED: MOM GT (22:38)
[2022-09-25] MEDS ORDERED: HYDR-4001 GT (22:38)
[2022-09-25] MEDS ORDERED: MULT-1116 GT (22:38)
[2022-09-26 00:25] VITALS: BP 156/86
[2022-09-26 04:00] VITALS: BP 132/85
[2022-09-26 05:53] LABS: BASOPHILS % 0.9 % (0.0-2.0); EOSINOPHILS % 2.4 % (0.0-5.0); HEMATOCRIT. 33.2 % (42.0-52.0); HEMOGLOBIN. 11.1 g/dL (14.0-18.0); LYMPHOCYTES % 19.1 % (20.0-50.0); MEAN CORPUSCULAR HEMOGLOBIN 31.2 pg (28.0-32.0); MEAN CORPUSCULAR VOLUME 93.1 fL (80.0-94.0); MEAN PLATELET VOLUME 9.1 fl (7.4-10.4); MONOCYTES % 6.6 % (2.0-8.0); PLATELET 160 x1000/uL (130-400); RED BLOOD CELL COUNT 3.56 mill/uL (4.7-6.1); RED CELL DISTRIBUTION WIDTH 15.4 % (11.6-14.6)
[2022-09-26 06:10] LABS: PROTHROMBIN TIME 11.2 sec (9.6-11.0)
[2022-09-26 08:00] VITALS: BP 97/66
[2022-09-26 08:43] LABS: CHLORIDE 107 mEq/L (98-107)
[2022-09-26] MEDS: LEVETIRACETAM 500MG/5ML CUP GT SCH ×2 (09:00→18:11)
[2022-09-26] MEDS: DIVALPROEX SODIUM 125MG SPRINKLE CAPSULE GT SCH ×2 (09:00→18:10)
[2022-09-26 12:00] VITALS: BP 129/69
[2022-09-26 16:00] VITALS: BP 131/81
[2022-09-26] MEDS ORDERED: KCL 20MEQ/100ML PREMIX 100 ML IV NR (16:00)
[2022-09-26] MEDS: DEXT 5%/0.9% NACL 1,000 ML IV SCH (18:14)
[2022-09-26 20:00] VITALS: BP 128/78
[2022-09-27] VITALS: BP 137/77
[2022-09-27 04:00] VITALS: BP 124/78
[2022-09-27 06:23] LABS: BASOPHILS % 0.7 % (0.0-2.0); EOSINOPHILS % 2.6 % (0.0-5.0); HEMATOCRIT. 31.1 % (42.0-52.0); HEMOGLOBIN. 10.6 g/dL (14.0-18.0); LYMPHOCYTES % 24.9 % (20.0-50.0); MEAN CORPUSCULAR HEMOGLOBIN 31.3 pg (28.0-32.0); MEAN CORPUSCULAR VOLUME 92.3 fL (80.0-94.0); MONOCYTES % 7.6 % (2.0-8.0); NEUTROPHILS % 64.2 % (40.0-76.0); PLATELET 165 x1000/uL (130-400); RED BLOOD CELL COUNT 3.37 mill/uL (4.7-6.1); RED CELL DISTRIBUTION WIDTH 15.6 % (11.6-14.6)
[2022-09-27 06:32] LABS: INR 1.1; PROTHROMBIN TIME 11.4 sec (9.6-11.0)
[2022-09-27 06:53] LABS: CHLORIDE 110 mEq/L (98-107)
[2022-09-27 08:00] VITALS: BP 128/78
[2022-09-27] MEDS ORDERED: KCL 20MEQ/100ML PREMIX 100 ML IV SCH (09:00)
[2022-09-27] MEDS: DIVALPROEX SODIUM 125MG SPRINKLE CAPSULE GT SCH ×2 (09:00→17:49)
[2022-09-27] MEDS: LEVETIRACETAM 500MG/5ML CUP GT SCH ×2 (09:00→17:49)
[2022-09-27] MEDS: DEXT 5%/0.9% NACL 1,000 ML IV SCH (09:15)
[2022-09-27 12:00] VITALS: BP 135/74
[2022-09-27] MEDS ORDERED: ONDANSETRON HCL 4MG/2ML INJ ONE (12:04)
[2022-09-27] MEDS ORDERED: DEXAMETHASONE 4MG/ML 1ML VIAL ONE (12:04)
[2022-09-27] MEDS ORDERED: PROPOFOL 200MG/20ML VIAL IV ONE (12:04)
[2022-09-27 16:00] VITALS: BP 125/80
[2022-09-27 20:00] VITALS: BP 119/74
[2022-09-28] VITALS: BP 121/70
[2022-09-28 00:34] LABS: BASOPHILS % 0.9 % (0.0-2.0); EOSINOPHILS % 1.1 % (0.0-5.0); HEMATOCRIT. 29.1 % (42.0-52.0); HEMOGLOBIN. 9.8 g/dL (14.0-18.0); MEAN CORPUSCULAR HEMOGLOBIN 31.4 pg (28.0-32.0); MEAN CORPUSCULAR VOLUME 92.6 fL (80.0-94.0); MEAN PLATELET VOLUME 8.8 fl (7.4-10.4); MONOCYTES % 7.8 % (2.0-8.0); NEUTROPHILS % 62.2 % (40.0-76.0); PLATELET 163 x1000/uL (130-400); RED BLOOD CELL COUNT 3.14 mill/uL (4.7-6.1); RED CELL DISTRIBUTION WIDTH 15.5 % (11.6-14.6)
[2022-09-28 00:42] LABS: INR 1.1; PROTHROMBIN TIME 11.9 sec (9.6-11.0)
[2022-09-28 04:00] VITALS: BP 127/73
[2022-09-28] MEDS: DEXT 5%/0.9% NACL 1,000 ML IV SCH ×3 (05:34→23:02)
[2022-09-28] MEDS: METOCLOPRAMIDE HCL 10MG/2ML VIAL IV SCH ×4 (05:34→23:00)
[2022-09-28 06:08] LABS: BASOPHILS % 0.7 % (0.0-2.0); EOSINOPHILS % 3.1 % (0.0-5.0); LYMPHOCYTES % 26.2 % (20.0-50.0); MEAN CORPUSCULAR HEMOGLOBIN 31.3 pg (28.0-32.0); MEAN CORPUSCULAR VOLUME 91.1 fL (80.0-94.0); MEAN PLATELET VOLUME 8.8 fl (7.4-10.4); MONOCYTES % 9.1 % (2.0-8.0); NEUTROPHILS % 60.9 % (40.0-76.0); PLATELET 152 x1000/uL (130-400); RED BLOOD CELL COUNT 3.19 mill/uL (4.7-6.1); RED CELL DISTRIBUTION WIDTH 15.4 % (11.6-14.6)
[2022-09-28 06:28] LABS: CHLORIDE 110 mEq/L (98-107)
[2022-09-28 08:00] VITALS: BP 125/64
[2022-09-28] MEDS: DIVALPROEX SODIUM 125MG SPRINKLE CAPSULE GT SCH ×2 (08:53→17:00)
[2022-09-28] MEDS: LEVETIRACETAM 500MG/5ML CUP GT SCH ×2 (08:53→17:47)
[2022-09-28 12:00] VITALS: BP 125/75
[2022-09-28] MEDS ORDERED: CEFAZOLIN 1000MG PREMIX 50 ML IV NR (13:00)
[2022-09-28] MEDS ORDERED: POTASSIUM CHLORIDE 20MEQ/PACKET GT NR (15:30)
[2022-09-28 16:00] VITALS: BP 142/81
[2022-09-28 20:00] VITALS: BP 125/80
[2022-09-29] VITALS: BP 125/80
[2022-09-29 04:00] VITALS: BP 139/77
[2022-09-29] MEDS: METOCLOPRAMIDE HCL 10MG/2ML VIAL IV SCH ×2 (05:14→12:00)
[2022-09-29 07:37] LABS: BASOPHILS % 0.6 % (0.0-2.0); EOSINOPHILS % 2.7 % (0.0-5.0); HEMATOCRIT. 26.4 % (42.0-52.0); HEMOGLOBIN. 9.1 g/dL (14.0-18.0); LYMPHOCYTES % 16.2 % (20.0-50.0); MEAN CORPUSCULAR HEMOGLOBIN 31.7 pg (28.0-32.0); MEAN CORPUSCULAR VOLUME 91.6 fL (80.0-94.0); MEAN PLATELET VOLUME 9.3 fl (7.4-10.4); NEUTROPHILS % 72.5 % (40.0-76.0); PLATELET 142 x1000/uL (130-400); RED BLOOD CELL COUNT 2.88 mill/uL (4.7-6.1); RED CELL DISTRIBUTION WIDTH 15.3 % (11.6-14.6)
[2022-09-29 07:47] LABS: INR 1.1; PROTHROMBIN TIME 11.5 sec (9.6-11.0)
[2022-09-29 08:00] VITALS: BP 122/73
[2022-09-29 08:38] LABS: CHLORIDE 108 mEq/L (98-107)
[2022-09-29] MEDS: DIVALPROEX SODIUM 125MG SPRINKLE CAPSULE GT SCH (09:39)
[2022-09-29] MEDS: LEVETIRACETAM 500MG/5ML CUP GT SCH (09:39)
[2022-09-29 12:00] VITALS: BP 136/75
[2022-09-29] MEDS: DEXT 5%/0.9% NACL 1,000 ML IV SCH (12:55)
== END 2022-09-29 13:25 | DRG 394 ==
LOC: ER 14:21 → 7WST 18:53 → ENRESERV 22:01
PROVIDERS: ADMIT Family Medicine Adult Medicine; ATTEND Family Medicine Adult Medicine
PROC: 0DB78ZX Excision of Stomach, Pylorus, Via Natural or Artificial Opening Endoscopic, Diagnostic (ICD-10-PCS; principal; 2022-09-27)
PROC: 0DH63UZ Insertion of Feeding Device into Stomach, Percutaneous Approach (ICD-10-PCS; 2022-09-27)
DX: K94.23 Gastrostomy malfunction (principal); G93.49 Other encephalopathy; J44.0 Chronic obstructive pulmonary disease with (acute) lower respiratory infection; I48.92 Unspecified atrial flutter; K21.9 Gastro-esophageal reflux disease without esophagitis; I25.10 Atherosclerotic heart disease of native coronary artery without angina pectoris; Z20.822 Contact with and (suspected) exposure to COVID-19; I10 Essential (primary) hypertension; R13.10 Dysphagia, unspecified; N28.9 Disorder of kidney and ureter, unspecified; G40.909 Epilepsy, unspecified, not intractable, without status epilepticus; K29.70 Gastritis, unspecified, without bleeding; K29.80 Duodenitis without bleeding; G93.89 Other specified disorders of brain; D64.9 Anemia, unspecified; E11.9 Type 2 diabetes mellitus without complications; F03.90 Unspecified dementia, unspecified severity, without behavioral disturbance, psychotic disturbance, mood disturbance, and anxiety; D72.10 Eosinophilia, unspecified; G31.9 Degenerative disease of nervous system, unspecified; Z74.01 Bed confinement status; Z88.2 Allergy status to sulfonamides; Z78.1 Physical restraint status; Z95.0 Presence of cardiac pacemaker; Z98.2 Presence of cerebrospinal fluid drainage device; Z79.82 Long term (current) use of aspirin; Z87.01 Personal history of pneumonia (recurrent)
CPT/HCPCS: 36415; 71045; 80048; 80053; 81003; 82962; 83880; 84132; 84484; 85025; 86850; 86900; 87426; 88305; 92610; 93005; 99285; A6261; C1893; C9803; J0690; J1100; J2060; J2405; J2704; J2765; J3480; J7030; J7042

== ENCOUNTER 2022-12-10 11:52 | Inpatient (IN) | payer MEDICARE, OTHER ==
[~2022-12-10] VITALS: Ht 182.9 cm; Wt 69.4 kg
[~2022-12-10 11:52] MED LIST changes: -ACET-2708 PO; +ACET650S27 GT; -AMLO10TA80 PO; -ASPI-1497 PO; -ATOR10TA69 PO; +BENZ1TAB78 GT; +BISA10SU62 RC; -BLOO-1686 MC; -CARB200T PO; -CITA20TA75 PO; -CLON0.1T PO; -DEPER5 PO; +DIVA125C2 GT; -DOCU-138 PO; +DOXA1TAB2 GT; +DUTA0.5C37 GT; +FERR220S9 GT; +FOLI-43 GT; +HALO10TA13 GT; +HYDR-4001 GT; -HYDR-4346 PO; +KEPPSOL GT; -MELA1LIQ PO; -METO25TA6 PO; +MIRT-90 GT; +MOM GT; -MOM MT; +MULT-1116 GT; -OLAN10TA72 PO; -PERA2TAB PO; +PHEN100O5 GT; +QUET25TA36 GT; -TOPUD PO; +TRAZ-251 GT
[2022-12-10] MEDS ORDERED: VANCOMYCIN 1G PREMIX 200 ML IV NR (12:15)
[2022-12-10 12:20] LABS: BG BASE EXCESS -2.4 mmol/L (-2.0-2.0); BG CARBOXYHEMOGLOBIN 0.6 % (0.5-1.5); BG DEOXYHEMOGLOBIN 0.9 % (0.0-5.0); BG FRACTION INSPIRED OXYGEN 100; BG METHEMOGLOBIN 0.4 % (0.0-1.5); BG OXYGEN SATURATION 99.1 % (92.0-98.5); BG OXYHEMOGLOBIN 98.1 % (94.0-97.0); BG PCO2 18.8 mmHg (35.0-45.0); BG PH 7.573 (7.350-7.450); BG PO2 132.2 mmHg (75.0-100.0); BG SAMPLE SITE LEFT RADIAL; BG TOTAL HEMOGLOBIN 14.2 g/dL (12.0-18.0); BG VENT MODE MASK - NRB; HEMOGLOBIN. 14.1 g/dL (14.0-18.0); MEAN CORPUSCULAR HEMOGLOBIN 31.8 pg (28.0-32.0); MEAN CORPUSCULAR VOLUME 94.6 fL (80.0-94.0); MEAN PLATELET VOLUME 8.7 fl (7.4-10.4); PLATELET 410 x1000/uL (130-400); RED BLOOD CELL COUNT 4.45 mill/uL (4.7-6.1); RED CELL DISTRIBUTION WIDTH 14.9 % (11.6-14.6)
[2022-12-10 12:27] LABS: CHLORIDE 117 mEq/L (98-107)
[2022-12-10] MEDS ORDERED: SODIUM CHLORIDE 0.9% 1000ML BAG (SEPSIS BOLUS) IV ONE (12:30)
[2022-12-10] MEDS ORDERED: VANCOMYCIN 1G PREMIX 200 ML IV ONE (12:30)
[2022-12-10] MEDS ORDERED: PIPERACILLIN/TAZ 3.375G PREMIX 50 ML IV ONE (12:30)
[2022-12-10] MEDS ORDERED: NOREPINEPHRINE 8 MG in DEXT 5% WATER 242 ML IV PRN (12:45)
[2022-12-10 12:49] LABS: NUCLEATED RED BLOOD CELLS 1 /100 WBC
[2022-12-10 12:53] LABS: PLATELET ESTIMATE SLIGHTLY INCREASED
[2022-12-10] MEDS ORDERED: NOREPINEPHRINE 8MG/250ML PMX 250ML IV PRN (13:00)
[2022-12-10] MEDS ORDERED: SODIUM CHLORIDE 0.9% 1,000 ML IV ONE (13:00)
[2022-12-10 13:18] LABS: INR 1.2
[2022-12-10 14:44] LABS: CLARITY URINE CLOUDY (CLEAR); COLOR URINE DARK YELLOW (YELLOW); KETONES URINE NEGATIVE (NEGATIVE); LEUKOCYTE ESTERASE URINE 2+ (NEGATIVE); NITRITE URINE NEGATIVE (NEGATIVE); OCCULT BLOOD URINE 3+ (NEGATIVE); PROTEIN URINE 3+ (NEGATIVE); SPECIFIC GRAVITY URINE 1.014 (1.005-1.030)
[2022-12-10] MEDS ORDERED: DOCUSATE SODIUM 100MG CAPSULE PO PRN (17:45)
[2022-12-10] MEDS ORDERED: CLONIDINE 0.1MG TABLET PO PRN (17:45)
[2022-12-10] MEDS ORDERED: IPRATROPIUM/ALBUTEROL 0.5-3(2.5)MG/3ML NEB HHN PRN ×2 (17:45)
[2022-12-10] MEDS ORDERED: HYDROCODONE/ACETAMINOPHEN 5/325MG TABLET PO PRN (17:45)
[2022-12-10] MEDS ORDERED: ONDANSETRON HCL 4MG/2ML INJ IV PRN (17:45)
[2022-12-10] MEDS ORDERED: SODIUM CHLORIDE 0.45% 1,000 ML IV SCH (17:45)
[2022-12-10] MEDS ORDERED: LORAZEPAM 0.5MG TABLET PO PRN (17:45)
[2022-12-10 17:52] VITALS: BP 90/59; PULSE 115; RESP 30; TEMP 99.2
[2022-12-10] MEDS ORDERED: NALOXONE HCL 0.4MG/ML VIAL IV PRN (18:15)
[2022-12-10] MEDS ORDERED: VANCOMYCIN 500MG PREMIX 100 ML IV NR (19:00)
[2022-12-10 20:00] VITALS: BP 118/80; PULSE 116; RESP 36; TEMP 98.1
[2022-12-10] MEDS: PIPERACILLIN/TAZOBACTAM 3.375 G in DEXTROSE 5% WATER 50 ML IV SCH ×2 (21:00→21:29)
[2022-12-10 22:00] VITALS: BP 102/68; PULSE 112; RESP 38
[2022-12-11] VITALS (14 sets, daily range): BP systolic 83–164; BP diastolic 30–72; PULSE 115–136; RESP 15–39; TEMP 97.4–99.5; O2SAT 96–97
[2022-12-11] MEDS ORDERED: DEXTROSE 50% WATER 50ML SYRINGE IV PRN (05:15)
[2022-12-11] MEDS: PIPERACILLIN/TAZOBACTAM 3.375 G in DEXTROSE 5% WATER 50 ML IV SCH ×2 (06:00→14:00)
[2022-12-11] MEDS: INSULIN LISPRO 100 UNITS/ML SUBCUT SCH ×4 (06:00→23:58)
[2022-12-11] MEDS: BLOOD SUGAR DIAGNOSTIC STRIP TEST SCH ×4 (06:34→23:58)
[2022-12-11 07:20] LABS: HEMATOCRIT. 39.2 % (42.0-52.0); HEMOGLOBIN. 12.8 g/dL (14.0-18.0); MEAN CORPUSCULAR HEMOGLOBIN 31.3 pg (28.0-32.0); MEAN CORPUSCULAR VOLUME 95.9 fL (80.0-94.0); MEAN PLATELET VOLUME 9.1 fl (7.4-10.4); PLATELET 353 x1000/uL (130-400); RED BLOOD CELL COUNT 4.09 mill/uL (4.7-6.1); RED CELL DISTRIBUTION WIDTH 15.1 % (11.6-14.6)
[2022-12-11 07:21] LABS: CHLORIDE 121 mEq/L (98-107)
[2022-12-11] MEDS: DEXTROSE 5% WATER 1,000 ML IV SCH (11:15)
[2022-12-11 12:19] LABS: CREATINE KINASE 53 IU/L (39-308)
[2022-12-11] MEDS: LAMOTRIGINE 25MG TABLET PO SCH (13:01)
[2022-12-11 14:28] LABS: PLATELET ESTIMATE NORMAL
[2022-12-11] MEDS ORDERED: LIDOCAINE HCL 1% 10 MG/ML 10ML VIAL ONE (14:36)
[2022-12-11] MEDS: IPRATROPIUM BROMIDE (0.02%) 0.5MG/2.5ML NEB HHN SCH ×2 (15:32→21:10)
[2022-12-11] MEDS: LEVETIRACETAM 500MG/5ML CUP GT SCH (18:11)
[2022-12-11] MEDS: PHENYTOIN 100 MG/4 ML UDC PO SCH (18:11)
[2022-12-11] MEDS: DIVALPROEX SODIUM 125MG SPRINKLE CAPSULE GT SCH (18:12)
[2022-12-12] VITALS (16 sets, daily range): BP systolic 89–125; BP diastolic 60–77; PULSE 105–124; RESP 18–39; TEMP 97.2–99.4; O2SAT 94–97
[2022-12-12] MEDS: MEROPENEM 1,000 MG in SODIUM CHLORIDE 0.9% 100 ML IV SCH ×2 (00:01→22:04)
[2022-12-12] MEDS ORDERED: HEPARIN 25,000 UNITS PREMIX 250 ML IV SCH ×2 (00:15→00:45)
[2022-12-12] MEDS ORDERED: HEPARIN 80 UNITS/KG BOLUS IV NR (01:15)
[2022-12-12] MEDS: IPRATROPIUM BROMIDE (0.02%) 0.5MG/2.5ML NEB HHN SCH ×4 (01:38→20:30)
[2022-12-12] MEDS: DEXTROSE 5% WATER 1,000 ML IV SCH ×2 (02:19→14:26)
[2022-12-12 06:13] LABS: HEMATOCRIT. 36.2 % (42.0-52.0); HEMOGLOBIN. 11.7 g/dL (14.0-18.0); MEAN CORPUSCULAR HEMOGLOBIN 30.6 pg (28.0-32.0); MEAN CORPUSCULAR VOLUME 94.3 fL (80.0-94.0); MEAN PLATELET VOLUME 9.1 fl (7.4-10.4); PLATELET 325 x1000/uL (130-400); RED BLOOD CELL COUNT 3.84 mill/uL (4.7-6.1)
[2022-12-12] MEDS: BLOOD SUGAR DIAGNOSTIC STRIP TEST SCH ×4 (06:39→23:47)
[2022-12-12] MEDS: INSULIN LISPRO 100 UNITS/ML SUBCUT SCH ×4 (06:47→23:47)
[2022-12-12] MEDS ORDERED: HEPARIN BOLUS PRN aPTT 37-44 IV (08:00)
[2022-12-12] MEDS ORDERED: HEPARIN BOLUS PRN aPTT <36 IV (08:00)
[2022-12-12 08:58] LABS: BG BASE EXCESS -2.7 mmol/L (-2.0-2.0); BG CARBOXYHEMOGLOBIN 0.3 % (0.5-1.5); BG DEOXYHEMOGLOBIN 2.1 % (0.0-5.0); BG FRACTION INSPIRED OXYGEN 36; BG HCO3 ACT 19.9 mmol/L (22.0-26.0); BG METHEMOGLOBIN 0.3 % (0.0-1.5); BG OXYGEN SATURATION 97.9 % (92.0-98.5); BG OXYHEMOGLOBIN 97.3 % (94.0-97.0); BG PCO2 28.4 mmHg (35.0-45.0); BG PH 7.463 (7.350-7.450); BG PO2 103.6 mmHg (75.0-100.0); BG SAMPLE SITE RIGHT RADIAL; BG TOTAL HEMOGLOBIN 12.4 g/dL (12.0-18.0); BG VENT MODE NASAL CANNULA
[2022-12-12] MEDS: LEVETIRACETAM 500MG/5ML CUP GT SCH ×2 (08:58→17:48)
[2022-12-12] MEDS: DIVALPROEX SODIUM 125MG SPRINKLE CAPSULE GT SCH ×2 (08:58→17:50)
[2022-12-12] MEDS: LAMOTRIGINE 25MG TABLET PO SCH (08:58)
[2022-12-12 10:06] LABS: NUCLEATED RED BLOOD CELLS 1 /100 WBC
[2022-12-12 10:07] LABS: PLATELET ESTIMATE NORMAL
[2022-12-12] MEDS: ENOXAPARIN 80MG/0.8ML SYR SUBCUT SCH (10:41)
[2022-12-12] MEDS ORDERED: AMIKACIN 500MG in SODIUM CHLORIDE 0.9% 100ML IV SCH (13:00)
[2022-12-12] MEDS: PHENYTOIN 100 MG/4 ML UDC PO SCH (17:48)
[2022-12-13] VITALS (17 sets, daily range): BP systolic 81–132; BP diastolic 50–78; PULSE 101–134; RESP 16–35; TEMP 98.1–99.5; O2SAT 94–96
[2022-12-13] MEDS: IPRATROPIUM BROMIDE (0.02%) 0.5MG/2.5ML NEB HHN SCH ×4 (01:54→20:18)
[2022-12-13] MEDS: DEXTROSE 5% WATER 1,000 ML IV SCH ×2 (03:17→15:58)
[2022-12-13] MEDS: BLOOD SUGAR DIAGNOSTIC STRIP TEST SCH ×3 (05:11→17:30)
[2022-12-13] MEDS: INSULIN LISPRO 100 UNITS/ML SUBCUT SCH ×3 (05:11→17:31)
[2022-12-13 06:48] LABS: HEMATOCRIT. 32.5 % (42.0-52.0); HEMOGLOBIN. 10.8 g/dL (14.0-18.0); MEAN CORPUSCULAR HEMOGLOBIN 31.1 pg (28.0-32.0); MEAN CORPUSCULAR VOLUME 94.1 fL (80.0-94.0); MEAN PLATELET VOLUME 9.6 fl (7.4-10.4); PLATELET 279 x1000/uL (130-400); RED BLOOD CELL COUNT 3.46 mill/uL (4.7-6.1); RED CELL DISTRIBUTION WIDTH 15.3 % (11.6-14.6)
[2022-12-13] MEDS: DIVALPROEX SODIUM 125MG SPRINKLE CAPSULE GT SCH ×2 (09:21→16:09)
[2022-12-13] MEDS: LAMOTRIGINE 25MG TABLET PO SCH (09:21)
[2022-12-13] MEDS: LEVETIRACETAM 500MG/5ML CUP GT SCH ×2 (09:22→16:09)
[2022-12-13] MEDS: ENOXAPARIN 80MG/0.8ML SYR SUBCUT SCH (09:23)
[2022-12-13 10:18] LABS: PLATELET ESTIMATE NORMAL
[2022-12-13 13:14] LABS: TOTAL IRON BINDING CAPACITY 175 ug/dL (250-450)
[2022-12-13 13:16] LABS: HEMATOCRIT 31.1 % (42.0-52.0); HEMOGLOBIN 10.3 g/dL (14.0-18.0)
[2022-12-13 13:32] LABS: PARTIAL THROMBOPLASTIN TIME 36.4 sec (23.4-31.0)
[2022-12-13 13:53] LABS: FERRITIN 989 ng/mL (22-322)
[2022-12-13 14:00] LABS: VITAMIN B12 SERUM 1180 pg/mL (211-911)
[2022-12-13 14:09] LABS: FOLIC ACID (FOLATE) SERUM > 20.00 ng/mL (>5.38)
[2022-12-13] MEDS ORDERED: SODIUM CHLORIDE 0.9% 250 ML IV ONE (15:00)
[2022-12-13 15:38] LABS: BG BASE EXCESS -1.6 mmol/L (-2.0-2.0); BG CARBOXYHEMOGLOBIN 0.3 % (0.5-1.5); BG DEOXYHEMOGLOBIN 2.7 % (0.0-5.0); BG HCO3 ACT 20.4 mmol/L (22.0-26.0); BG METHEMOGLOBIN 0.5 % (0.0-1.5); BG OXYGEN SATURATION 97.3 % (92.0-98.5); BG OXYHEMOGLOBIN 96.5 % (94.0-97.0); BG PCO2 26.5 mmHg (35.0-45.0); BG PH 7.505 (7.350-7.450); BG PO2 97.2 mmHg (75.0-100.0); BG SAMPLE SITE RIGHT RADIAL; BG TOTAL HEMOGLOBIN 11.2 g/dL (12.0-18.0); BG VENT MODE NASAL CANNULA
[2022-12-13] MEDS: PHENYTOIN 100 MG/4 ML UDC PO SCH (16:09)
[2022-12-13] MEDS: METOCLOPRAMIDE HCL 10MG/2ML VIAL IV SCH ×2 (18:44→23:38)
[2022-12-13] MEDS: MEROPENEM 1,000 MG in SODIUM CHLORIDE 0.9% 100 ML IV SCH (23:37)
[2022-12-14] VITALS (18 sets, daily range): BP systolic 86–130; BP diastolic 45–72; PULSE 114–139; RESP 7–34; TEMP 97.3–100.8; O2SAT 94–97
[2022-12-14] MEDS: IPRATROPIUM BROMIDE (0.02%) 0.5MG/2.5ML NEB HHN SCH ×4 (01:31→21:13)
[2022-12-14] MEDS: INSULIN LISPRO 100 UNITS/ML SUBCUT SCH ×5 (06:00→23:43)
[2022-12-14] MEDS: BLOOD SUGAR DIAGNOSTIC STRIP TEST SCH ×5 (06:00→23:37)
[2022-12-14] MEDS: DEXTROSE 5% WATER 1,000 ML IV SCH (06:10)
[2022-12-14] MEDS: METOCLOPRAMIDE HCL 10MG/2ML VIAL IV SCH ×2 (06:10→12:24)
[2022-12-14 07:09] LABS: CHLORIDE 118 mEq/L (98-107)
[2022-12-14] MEDS ORDERED: POTASSIUM CHLORIDE INJ 40 MEQ in DEXT 5% WATER 250 ML IV ONE (08:00)
[2022-12-14] MEDS: LEVETIRACETAM 500MG/5ML CUP GT SCH ×2 (10:03→17:25)
[2022-12-14] MEDS: DIVALPROEX SODIUM 125MG SPRINKLE CAPSULE GT SCH ×2 (10:04→17:26)
[2022-12-14] MEDS: ENOXAPARIN 80MG/0.8ML SYR SUBCUT SCH (10:09)
[2022-12-14] MEDS: LAMOTRIGINE 25MG TABLET PO SCH (10:13)
[2022-12-14] MEDS: KCL 20MEQ/100ML X 2 FOR TOTAL KCL 40MEQ/200ML IV SCH ×2 (10:13→12:16)
[2022-12-14 13:17] LABS: HEMATOCRIT. 30.7 % (42.0-52.0); HEMOGLOBIN. 10.4 g/dL (14.0-18.0); MEAN CORPUSCULAR HEMOGLOBIN 32.1 pg (28.0-32.0); MEAN CORPUSCULAR VOLUME 94.6 fL (80.0-94.0); PLATELET 212 x1000/uL (130-400); RED BLOOD CELL COUNT 3.25 mill/uL (4.7-6.1); RED CELL DISTRIBUTION WIDTH 14.9 % (11.6-14.6)
[2022-12-14 14:35] LABS: PLATELET ESTIMATE NORMAL
[2022-12-14] MEDS ORDERED: METRONIDAZOLE 500 MG PREMIX 100 ML IV SCH (16:15)
[2022-12-14] MEDS: PHENYTOIN 100 MG/4 ML UDC PO SCH (17:25)
[2022-12-14] MEDS: MEROPENEM 1,000 MG in SODIUM CHLORIDE 0.9% 100 ML IV SCH (23:32)
[2022-12-15] VITALS (20 sets, daily range): BP systolic 75–118; BP diastolic 48–80; PULSE 113–141; RESP 9–40; TEMP 97.9–100.5; O2SAT 95–99
[2022-12-15] MEDS: ACETAMINOPHEN 325MG TABLET PO PRN (00:40)
[2022-12-15] MEDS: BLOOD SUGAR DIAGNOSTIC STRIP TEST SCH ×3 (06:00→17:03)
[2022-12-15] MEDS: INSULIN LISPRO 100 UNITS/ML SUBCUT SCH ×3 (06:00→17:03)
[2022-12-15 06:33] LABS: BASOPHILS % 0.1 % (0.0-2.0); EOSINOPHILS % 0.1 % (0.0-5.0); HEMATOCRIT. 30.8 % (42.0-52.0); HEMOGLOBIN. 10.5 g/dL (14.0-18.0); LYMPHOCYTES % 10.9 % (20.0-50.0); MEAN CORPUSCULAR HEMOGLOBIN 32.1 pg (28.0-32.0); MEAN CORPUSCULAR VOLUME 94.4 fL (80.0-94.0); MEAN PLATELET VOLUME 9.7 fl (7.4-10.4); MONOCYTES % 11.6 % (2.0-8.0); NEUTROPHILS % 77.3 % (40.0-76.0); PLATELET 186 x1000/uL (130-400); RED BLOOD CELL COUNT 3.27 mill/uL (4.7-6.1); RED CELL DISTRIBUTION WIDTH 14.4 % (11.6-14.6)
[2022-12-15 06:36] LABS: CHLORIDE 122 mEq/L (98-107)
[2022-12-15 06:47] LABS: PHOSPHORUS 2.1 mg/dL (2.5-4.9)
[2022-12-15] MEDS: IPRATROPIUM BROMIDE (0.02%) 0.5MG/2.5ML NEB HHN SCH ×3 (09:17→21:31)
[2022-12-15] MEDS: LAMOTRIGINE 25MG TABLET PO SCH (09:43)
[2022-12-15] MEDS: DIVALPROEX SODIUM 125MG SPRINKLE CAPSULE GT SCH ×2 (09:43→16:27)
[2022-12-15] MEDS: ENOXAPARIN 80MG/0.8ML SYR SUBCUT SCH ×2 (09:44→23:25)
[2022-12-15] MEDS: LEVETIRACETAM 500MG/5ML CUP GT SCH ×2 (09:44→16:26)
[2022-12-15] MEDS ORDERED: POTASSIUM PHOS,M-BASIC-D-BASIC 15 MMOL in DEXT 5% WATER 245 ML IV NR (12:00)
[2022-12-15] MEDS: MIDODRINE HCL 5MG TABLET PO SCH ×2 (12:57→16:26)
[2022-12-15] MEDS ORDERED: DIGOXIN 500MCG/2ML AMP IV NR (15:45)
[2022-12-15] MEDS: PHENYTOIN 100 MG/4 ML UDC PO SCH (16:25)
[2022-12-15] MEDS: MEROPENEM 1,000 MG in SODIUM CHLORIDE 0.9% 100 ML IV SCH (23:25)
[2022-12-16] VITALS (19 sets, daily range): BP systolic 93–136; BP diastolic 53–79; PULSE 103–136; RESP 19–36; TEMP 98.6–99.8; O2SAT 95–97
[2022-12-16] MEDS: BLOOD SUGAR DIAGNOSTIC STRIP TEST SCH ×4 (00:12→18:40)
[2022-12-16] MEDS: IPRATROPIUM BROMIDE (0.02%) 0.5MG/2.5ML NEB HHN SCH ×4 (01:29→21:08)
[2022-12-16] MEDS: INSULIN LISPRO 100 UNITS/ML SUBCUT SCH ×4 (06:00→18:00)
[2022-12-16 06:23] LABS: BASOPHILS % 0.2 % (0.0-2.0); EOSINOPHILS % 0.7 % (0.0-5.0); HEMOGLOBIN. 10.8 g/dL (14.0-18.0); MEAN CORPUSCULAR HEMOGLOBIN 31.1 pg (28.0-32.0); MEAN CORPUSCULAR VOLUME 97.4 fL (80.0-94.0); MONOCYTES % 12.1 % (2.0-8.0); RED BLOOD CELL COUNT 3.48 mill/uL (4.7-6.1); RED CELL DISTRIBUTION WIDTH 14.9 % (11.6-14.6)
[2022-12-16 06:34] LABS: CHLORIDE 119 mEq/L (98-107)
[2022-12-16 08:14] LABS: PLATELET 209 x1000/uL (130-400)
[2022-12-16 08:41] LABS: BG BASE EXCESS 3.1 mmol/L (-2.0-2.0); BG CARBOXYHEMOGLOBIN 0.3 % (0.5-1.5); BG DEOXYHEMOGLOBIN 11.8 % (0.0-5.0); BG FRACTION INSPIRED OXYGEN 100; BG HCO3 ACT 29.1 mmol/L (22.0-26.0); BG METHEMOGLOBIN 0.2 % (0.0-1.5); BG OXYGEN SATURATION 88.1 % (92.0-98.5); BG OXYHEMOGLOBIN 87.7 % (94.0-97.0); BG PCO2 50.7 mmHg (35.0-45.0); BG PH 7.377 (7.350-7.450); BG PO2 57.1 mmHg (75.0-100.0); BG SAMPLE SITE RIGHT RADIAL; BG VENT MODE VAPOTHERM
[2022-12-16] MEDS: ENOXAPARIN 80MG/0.8ML SYR SUBCUT SCH ×2 (10:55→21:38)
[2022-12-16] MEDS: LAMOTRIGINE 25MG TABLET PO SCH (10:56)
[2022-12-16] MEDS: LEVETIRACETAM 500MG/5ML CUP GT SCH ×2 (10:56→18:39)
[2022-12-16] MEDS: DIVALPROEX SODIUM 125MG SPRINKLE CAPSULE GT SCH ×2 (10:57→18:41)
[2022-12-16] MEDS: MIDODRINE HCL 5MG TABLET PO SCH ×3 (10:58→18:39)
[2022-12-16] MEDS ORDERED: MORPHINE SULFATE 2 MG/ML CPJ (NOT FOR IM USE) IV PRN (15:45)
[2022-12-16] MEDS: MEROPENEM 1,000 MG in SODIUM CHLORIDE 0.9% 100 ML IV SCH (18:38)
[2022-12-16] MEDS: PHENYTOIN 100 MG/4 ML UDC PO SCH (18:38)
[2022-12-16] MEDS: ACETAMINOPHEN 325MG TABLET PO PRN (18:40)
[2022-12-17] VITALS (11 sets, daily range): BP systolic 100–135; BP diastolic 59–76; PULSE 108–126; RESP 20–33; TEMP 98.9–101; O2SAT 0–95
[2022-12-17] MEDS: BLOOD SUGAR DIAGNOSTIC STRIP TEST SCH ×5 (00:18→23:17)
[2022-12-17] MEDS: IPRATROPIUM BROMIDE (0.02%) 0.5MG/2.5ML NEB HHN SCH ×4 (02:00→21:13)
[2022-12-17] MEDS: MEROPENEM 1,000 MG in SODIUM CHLORIDE 0.9% 100 ML IV SCH ×3 (02:16→18:14)
[2022-12-17] MEDS: INSULIN LISPRO 100 UNITS/ML SUBCUT SCH ×5 (06:00→23:17)
[2022-12-17 06:17] LABS: BASOPHILS % 0.1 % (0.0-2.0); EOSINOPHILS % 1.2 % (0.0-5.0); HEMATOCRIT. 30.4 % (42.0-52.0); HEMOGLOBIN. 9.9 g/dL (14.0-18.0); LYMPHOCYTES % 10.4 % (20.0-50.0); MEAN CORPUSCULAR VOLUME 95.4 fL (80.0-94.0); MONOCYTES % 8.5 % (2.0-8.0); NEUTROPHILS % 79.8 % (40.0-76.0); PLATELET 243 x1000/uL (130-400); RED BLOOD CELL COUNT 3.18 mill/uL (4.7-6.1)
[2022-12-17 06:19] LABS: CHLORIDE 125 mEq/L (98-107)
[2022-12-17] MEDS: LACTULOSE 20G/30ML UDC PO SCH ×3 (07:49→17:26)
[2022-12-17] MEDS: LEVETIRACETAM 500MG/5ML CUP GT SCH ×2 (09:45→17:26)
[2022-12-17] MEDS: ENOXAPARIN 80MG/0.8ML SYR SUBCUT SCH ×2 (09:46→23:01)
[2022-12-17] MEDS: LAMOTRIGINE 25MG TABLET PO SCH (09:46)
[2022-12-17] MEDS: MIDODRINE HCL 5MG TABLET PO SCH ×3 (09:51→17:25)
[2022-12-17] MEDS: DIVALPROEX SODIUM 125MG SPRINKLE CAPSULE GT SCH ×2 (09:52→17:00)
[2022-12-17] MEDS ORDERED: NALOXONE HCL 0.4MG/ML VIAL IV PRN (10:00)
[2022-12-17] MEDS: DEXTROSE 5% WATER 1,000 ML IV SCH ×2 (10:26→23:02)
[2022-12-17] MEDS: ACETAMINOPHEN 325MG TABLET PO PRN ×2 (14:45→17:25)
[2022-12-17] MEDS: PHENYTOIN 100 MG/4 ML UDC PO SCH (17:26)
[2022-12-18] VITALS (11 sets, daily range): BP systolic 118–144; BP diastolic 61–77; PULSE 80–126; RESP 25–35; TEMP 98.1–100.9
[2022-12-18] MEDS: MEROPENEM 1,000 MG in SODIUM CHLORIDE 0.9% 100 ML IV SCH ×3 (02:30→18:12)
[2022-12-18] MEDS: INSULIN LISPRO 100 UNITS/ML SUBCUT SCH ×3 (06:00→18:00)
[2022-12-18] MEDS: BLOOD SUGAR DIAGNOSTIC STRIP TEST SCH ×3 (06:24→18:09)
[2022-12-18 06:39] LABS: HEMATOCRIT. 32.4 % (42.0-52.0); HEMOGLOBIN. 10.6 g/dL (14.0-18.0); MEAN CORPUSCULAR HEMOGLOBIN 31.5 pg (28.0-32.0); MEAN CORPUSCULAR VOLUME 96.3 fL (80.0-94.0); MEAN PLATELET VOLUME 10.3 fl (7.4-10.4); PLATELET 252 x1000/uL (130-400); RED BLOOD CELL COUNT 3.37 mill/uL (4.7-6.1); RED CELL DISTRIBUTION WIDTH 14.9 % (11.6-14.6)
[2022-12-18 08:19] LABS: CHLORIDE 120 mEq/L (98-107); PHOSPHORUS 3.1 mg/dL (2.5-4.9)
[2022-12-18] MEDS: ENOXAPARIN 80MG/0.8ML SYR SUBCUT SCH ×2 (09:08→22:10)
[2022-12-18] MEDS: LAMOTRIGINE 25MG TABLET PO SCH (09:09)
[2022-12-18] MEDS: LEVETIRACETAM 500MG/5ML CUP GT SCH ×2 (09:09→17:57)
[2022-12-18] MEDS: LACTULOSE 20G/30ML UDC PO SCH ×2 (09:09→17:57)
[2022-12-18] MEDS: MIDODRINE HCL 5MG TABLET PO SCH ×3 (09:12→17:57)
[2022-12-18] MEDS: DIVALPROEX SODIUM 125MG SPRINKLE CAPSULE GT SCH ×2 (09:18→17:58)
[2022-12-18] MEDS: DEXTROSE 5% WATER 1,000 ML IV SCH (12:39)
[2022-12-18] MEDS: ACETAMINOPHEN 325MG TABLET PO PRN (16:20)
[2022-12-18] MEDS: PHENYTOIN 100 MG/4 ML UDC PO SCH (17:58)
[2022-12-18] MEDS ORDERED: AZITHROMYCIN 500 MG TABLET PO NR (18:00)
[2022-12-19] VITALS (7 sets, daily range): BP systolic 83–134; BP diastolic 44–65; PULSE 61–95; RESP 13–24; TEMP 97.5–99.7
[2022-12-19] MEDS: BLOOD SUGAR DIAGNOSTIC STRIP TEST SCH ×4 (00:26→18:00)
[2022-12-19] MEDS: MEROPENEM 1,000 MG in SODIUM CHLORIDE 0.9% 100 ML IV SCH ×2 (02:07→09:01)
[2022-12-19] MEDS: DEXTROSE 5% WATER 1,000 ML IV SCH ×2 (02:08→15:20)
[2022-12-19 04:33] LABS: PLATELET ESTIMATE 252
[2022-12-19] MEDS: INSULIN LISPRO 100 UNITS/ML SUBCUT SCH ×4 (06:00→18:00)
[2022-12-19 07:18] LABS: HEMATOCRIT. 25.9 % (42.0-52.0); HEMOGLOBIN. 8.3 g/dL (14.0-18.0); MEAN CORPUSCULAR VOLUME 96.6 fL (80.0-94.0); MEAN PLATELET VOLUME 9.5 fl (7.4-10.4); PLATELET 224 x1000/uL (130-400); RED BLOOD CELL COUNT 2.68 mill/uL (4.7-6.1); RED CELL DISTRIBUTION WIDTH 14.7 % (11.6-14.6)
[2022-12-19 07:49] LABS: CHLORIDE 117 mEq/L (98-107)
[2022-12-19 08:46] LABS: BG BASE EXCESS 5.8 mmol/L (-2.0-2.0); BG CARBOXYHEMOGLOBIN 0.1 % (0.5-1.5); BG FRACTION INSPIRED OXYGEN 80; BG HCO3 ACT 30.6 mmol/L (22.0-26.0); BG METHEMOGLOBIN 0.2 % (0.0-1.5); BG OXYHEMOGLOBIN 97.7 % (94.0-97.0); BG PCO2 45.9 mmHg (35.0-45.0); BG PH 7.442 (7.350-7.450); BG PO2 107.6 mmHg (75.0-100.0); BG SAMPLE SITE RIGHT RADIAL; BG TOTAL HEMOGLOBIN 9.3 g/dL (12.0-18.0)
[2022-12-19] MEDS: ENOXAPARIN 80MG/0.8ML SYR SUBCUT SCH ×2 (08:57→23:01)
[2022-12-19] MEDS: LACTULOSE 20G/30ML UDC PO SCH ×2 (08:57→16:49)
[2022-12-19] MEDS: DIVALPROEX SODIUM 125MG SPRINKLE CAPSULE GT SCH ×2 (08:57→16:51)
[2022-12-19] MEDS: LEVETIRACETAM 500MG/5ML CUP GT SCH ×2 (08:58→16:50)
[2022-12-19] MEDS: AZITHROMYCIN 500 MG TABLET PO SCH (08:58)
[2022-12-19] MEDS: MIDODRINE HCL 5MG TABLET PO SCH ×3 (09:00→16:50)
[2022-12-19] MEDS: LAMOTRIGINE 25MG TABLET PO SCH (09:01)
[2022-12-19] MEDS: PHENYTOIN 100 MG/4 ML UDC PO SCH (16:50)
[2022-12-20] VITALS: BP 79/49; PULSE 87; RESP 19; TEMP 97.9
[2022-12-20] MEDS: MEROPENEM 1,000 MG in SODIUM CHLORIDE 0.9% 100 ML IV SCH ×3 (02:00→18:56)
[2022-12-20 03:27] LABS: PLATELET ESTIMATE NORMAL
[2022-12-20 04:00] VITALS: BP 98/58; PULSE 80; RESP 19; TEMP 97.7
[2022-12-20] MEDS: DEXTROSE 5% WATER 1,000 ML IV SCH (04:40)
[2022-12-20] MEDS: INSULIN LISPRO 100 UNITS/ML SUBCUT SCH ×4 (06:00→18:00)
[2022-12-20] MEDS: BLOOD SUGAR DIAGNOSTIC STRIP TEST SCH ×4 (06:15→18:56)
[2022-12-20 07:13] LABS: HEMATOCRIT. 26.5 % (42.0-52.0); HEMOGLOBIN. 8.8 g/dL (14.0-18.0); MEAN CORPUSCULAR HEMOGLOBIN 31.6 pg (28.0-32.0); MEAN CORPUSCULAR VOLUME 94.9 fL (80.0-94.0); MEAN PLATELET VOLUME 9.4 fl (7.4-10.4); PLATELET 204 x1000/uL (130-400); RED BLOOD CELL COUNT 2.79 mill/uL (4.7-6.1); RED CELL DISTRIBUTION WIDTH 14.7 % (11.6-14.6)
[2022-12-20 07:26] LABS: CHLORIDE 111 mEq/L (98-107)
[2022-12-20 08:00] VITALS: BP 97/53; PULSE 72; RESP 20; TEMP 98.4
[2022-12-20] MEDS: AZITHROMYCIN 500 MG TABLET PO SCH (08:44)
[2022-12-20] MEDS: DIVALPROEX SODIUM 125MG SPRINKLE CAPSULE GT SCH ×2 (08:44→18:55)
[2022-12-20] MEDS: LAMOTRIGINE 25MG TABLET PO SCH (08:45)
[2022-12-20] MEDS: LEVETIRACETAM 500MG/5ML CUP GT SCH ×2 (08:45→18:55)
[2022-12-20] MEDS: LACTULOSE 20G/30ML UDC PO SCH ×2 (08:45→18:55)
[2022-12-20] MEDS: MIDODRINE HCL 5MG TABLET PO SCH ×3 (08:45→18:56)
[2022-12-20] MEDS: ENOXAPARIN 80MG/0.8ML SYR SUBCUT SCH (09:33)
[2022-12-20 12:00] VITALS: BP 99/64; PULSE 70; RESP 20; TEMP 98.2
[2022-12-20 17:22] LABS: PLATELET ESTIMATE NORMAL
[2022-12-20] MEDS: PHENYTOIN 100 MG/4 ML UDC PO SCH (18:55)
[2022-12-20 20:00] VITALS: BP 126/63; PULSE 104; RESP 16; TEMP 97.8
[2022-12-21] VITALS: BP 129/70; PULSE 93; RESP 19; TEMP 99.2
[2022-12-21] MEDS: ENOXAPARIN 80MG/0.8ML SYR SUBCUT SCH ×2 (00:11→09:00)
[2022-12-21] MEDS: MEROPENEM 1,000 MG in SODIUM CHLORIDE 0.9% 100 ML IV SCH ×2 (02:16→05:42)
[2022-12-21 04:00] VITALS: BP 107/55; PULSE 91; RESP 17; TEMP 97.5
[2022-12-21] MEDS: BLOOD SUGAR DIAGNOSTIC STRIP TEST SCH ×2 (06:00)
[2022-12-21] MEDS: INSULIN LISPRO 100 UNITS/ML SUBCUT SCH ×2 (06:00)
[2022-12-21 07:13] LABS: HEMATOCRIT. 24.4 % (42.0-52.0); MEAN CORPUSCULAR HEMOGLOBIN 30.7 pg (28.0-32.0); MEAN CORPUSCULAR VOLUME 94.3 fL (80.0-94.0); MEAN PLATELET VOLUME 9.2 fl (7.4-10.4); PLATELET 229 x1000/uL (130-400); RED BLOOD CELL COUNT 2.59 mill/uL (4.7-6.1); RED CELL DISTRIBUTION WIDTH 14.5 % (11.6-14.6)
[2022-12-21 07:22] LABS: CHLORIDE 107 mEq/L (98-107)
[2022-12-21 08:00] VITALS: BP 102/61; PULSE 93; TEMP 98.8
[2022-12-21] MEDS: LACTULOSE 20G/30ML UDC PO SCH (09:00)
[2022-12-21] MEDS: DIVALPROEX SODIUM 125MG SPRINKLE CAPSULE GT SCH (09:41)
[2022-12-21] MEDS: LEVETIRACETAM 500MG/5ML CUP GT SCH (09:41)
[2022-12-21] MEDS: LAMOTRIGINE 25MG TABLET PO SCH (09:42)
[2022-12-21] MEDS: MIDODRINE HCL 5MG TABLET PO SCH (09:42)
[2022-12-21] MEDS: AZITHROMYCIN 500 MG TABLET PO SCH (09:43)
[2022-12-21 12:00] VITALS: BP 67/38; PULSE 121; RESP 25; TEMP 100.6
[2022-12-21 13:45] LABS: PLATELET ESTIMATE NORMAL
[2022-12-21] MEDS ORDERED: MORPHINE SULFATE 2 MG/ML CPJ (NOT FOR IM USE) IV PRN (15:00)
== END 2022-12-21 16:10 | DRG 871 ==
LOC: ER 11:52 → EDBEDREQ 14:18 → EDBEDREQTM 14:18 → 5EST 14:53 → EDBEDREQ 15:34 → 6EST 12-19 17:40
PROVIDERS: ADMIT Internal Medicine; ATTEND Internal Medicine
PROC: 02HV33Z Insertion of Infusion Device into Superior Vena Cava, Percutaneous Approach (ICD-10-PCS; principal; 2022-12-11)
PROC: B548ZZA Ultrasonography of Superior Vena Cava, Guidance (ICD-10-PCS; 2022-12-11)
DX: A41.59 Other Gram-negative sepsis (principal); G93.41 Metabolic encephalopathy; L89.154 Pressure ulcer of sacral region, stage 4; J96.01 Acute respiratory failure with hypoxia; R65.21 Severe sepsis with septic shock; N17.0 Acute kidney failure with tubular necrosis; J18.9 Pneumonia, unspecified organism; E87.4 Mixed disorder of acid-base balance; E44.0 Moderate protein-calorie malnutrition; E87.0 Hyperosmolality and hypernatremia; J44.0 Chronic obstructive pulmonary disease with (acute) lower respiratory infection; N13.6 Pyonephrosis; I82.411 Acute embolism and thrombosis of right femoral vein; Z66 Do not resuscitate; E86.0 Dehydration; E11.65 Type 2 diabetes mellitus with hyperglycemia; Z68.20 Body mass index [BMI] 20.0-20.9, adult; N18.9 Chronic kidney disease, unspecified; F03.90 Unspecified dementia, unspecified severity, without behavioral disturbance, psychotic disturbance, mood disturbance, and anxiety; I12.9 Hypertensive chronic kidney disease with stage 1 through stage 4 chronic kidney disease, or unspecified chronic kidney disease; E88.09 Other disorders of plasma-protein metabolism, not elsewhere classified; G40.909 Epilepsy, unspecified, not intractable, without status epilepticus; I25.10 Atherosclerotic heart disease of native coronary artery without angina pectoris; R13.10 Dysphagia, unspecified; I48.91 Unspecified atrial fibrillation; K29.80 Duodenitis without bleeding; K56.41 Fecal impaction; B96.4 Proteus (mirabilis) (morganii) as the cause of diseases classified elsewhere; D50.9 Iron deficiency anemia, unspecified; E11.22 Type 2 diabetes mellitus with diabetic chronic kidney disease; G31.9 Degenerative disease of nervous system, unspecified; K29.50 Unspecified chronic gastritis without bleeding; K57.30 Diverticulosis of large intestine without perforation or abscess without bleeding; Z79.899 Other long term (current) drug therapy; Z95.0 Presence of cardiac pacemaker; Z88.2 Allergy status to sulfonamides; Z90.49 Acquired absence of other specified parts of digestive tract; Z98.2 Presence of cerebrospinal fluid drainage device; Z88.8 Allergy status to other drugs, medicaments and biological substances
CPT/HCPCS: 36415; 36573; 36600; 71045; 74018; 74176; 76770; 80048; 80053; 80165; 80202; 81003; 82040; 82140; 82270; 82375; 82542; 82550; 82607; 82728; 82746; 82805; 82962; 83036; 83540; 83550; 83605; 83735; 83880; 84100; 84134; 84145; 84484; 84550; 85007; 85014; 85018; 85025; 85027; 85044; 85379; 86850; 86900; 87015; 87045; 87076; 87077; 87186; 87427; 87449; 93005; 93306; 93970; 94640; 99291; A6261; C1725; J0278; J1160; J1644; J1650; J1815; J2185; J2543; J2765; J3370; J3480; J3490; J7030; J7050; J7060; J7070